=== PATIENT | male | born 1940 | race American Indian/Alaskan Native ===

== ENCOUNTER 2020-10-30 16:30 | Observation (INO) | payer MEDICARE, OTHER ==
--- NOTE | 2020-10-30 16:33 | Emergency Department Report ---
HPI - General Time Seen by Provider: 10/30/20 16:30 - HPI HPI: This is a 80-year-old -[place] male presents to the emergency department via EMS, after he was brought into the fire station by his son, with complaint of left-sided facial droop, drooling, and slurred speech. Apparently the patient's last known well time was about 2:15 PM. He has a history of a previous TIA, hypertension, insulin-dependent diabetes and is end-stage renal disease on hemodialysis. The patient is awake, alert, oriented and denies any headache, fever, vision change, numbness or weakness of the extremities. The patient had an Accu-Chek in route that was 120. He completed dialysis earlier today. Given the facial droop and slurred speech, which the family says is not his baseline, a code stroke has been initiated. ED Review of Systems ROS: Stated complaint: POSS STROKE Other details as noted in HPI Comment: All other systems reviewed and negative Constitutional: denies: chills, fever Eyes: denies: eye pain, vision change ENT: denies: ear pain, throat pain Respiratory: denies: cough, shortness of breath Cardiovascular: denies: chest pain, palpitations Gastrointestinal: denies: abdominal pain, vomiting Genitourinary: denies: dysuria, discharge Musculoskeletal: denies: back pain, arthralgia Skin: denies: rash, lesions Neurological: other (Left-sided facial droop, slurred speech). denies: headache Physical Exam - Physical Exam Physical Exam: GENERAL: The patient is well-developed well-nourished. HENT: Normocephalic. Atraumatic. Patient has moist mucous membranes. EYES: Extraocular motions are intact. Pupils equal reactive to light bilaterally. No nystagmus. No gaze preference. NECK: Supple. Trachea is midline. CHEST/LUNGS: Clear to auscultation. There is no respiratory distress noted. HEART/CARDIOVASCULAR: Regular. There is no tachycardia. There is no murmur. ABDOMEN: Abdomen is soft, nontender. Patient has normal bowel sounds. There is no abdominal distention. SKIN: Skin is warm and dry. NEURO: The patient is awake, alert, and oriented. The patient is cooperative. Mild dysarthria. There is a left-sided nasolabial fold paresis causing some drooling. Forehead sparing. No pronator drift. MUSCULOSKELETAL: There is no tenderness or deformity. There is no limitation range of motion. ED Medical Decision Making - Lab Data Result diagrams: 10/30/20 16:35 10/30/20 16:35 Lab Results 10/30/20 10/30/20 10/30/20 Range/Units 16:35 16:35 16:35 WBC 8.4 (4.5-11.0) K/mm3 RBC 4.30 (3.65-5.03) M/mm3 Hgb 13.2 (11.8-15.2) gm/dl Hct 40.7 (35.5-45.6) % MCV 95 H (84-94) fl MCH 31 (28-32) pg MCHC 32 (32-34) % RDW 14.6 (13.2-15.2) % Plt Count 206 (140-440) K/mm3 Lymph % (Auto) Care Aide [place] % (Auto) Care Aide Eos % (Auto) Care Aide Baso % (Auto) Care Aide Lymph # (Auto) Care Aide [place] # (Auto) Care Aide Eos # (Auto) Care Aide Baso # (Auto) Care Aide Seg Neutrophils % Care Aide Seg Neutrophils # Care Aide PT 12.9 (12.2-14.9) Sec. INR 0.92 (0.87-1.13) APTT 30.0 (24.2-36.6) Sec. Thrombin Time 17.7 (15.1-19.6) Sec. Sodium 132 L (137-145) mmol/L Potassium 3.7 (3.6-5.0) mmol/L Chloride 99.9 (98-107) mmol/L Carbon Dioxide 24 (22-30) mmol/L Anion Gap 12 mmol/L BUN 7 L (9-20) mg/dL Creatinine 5.2 H (0.8-1.3) mg/dL Estimated GFR 13 ml/min BUN/Creatinine Ratio 1 % Glucose 135 H (75-100) mg/dL Calcium 9.0 (8.4-10.2) mg/dL Total Bilirubin 0.30 (0.1-1.2) mg/dL AST 12 (5-40) units/L ALT 15 (7-56) units/L Alkaline Phosphatase 220 H (35-129) units/L Troponin T 0.046 H (0.00-0.029) ng/mL Total Protein 7.0 (6.3-8.2) g/dL Albumin 3.6 L (3.9-5) g/dL Albumin/Globulin Ratio 1.1 % Triglycerides 110 (2-149) mg/dL Cholesterol 110 (50-199) mg/dL LDL Cholesterol Direct 53 (50-130) mg/dL HDL Cholesterol 33 L (40-59) mg/dL Cholesterol/HDL Ratio 3.33 % TSH (0.270-4.200) mlU/mL Plasma/Serum Alcohol (0-0.07) % Blood Type Antibody Screen 10/30/20 10/30/20 10/30/20 Range/Units 16:35 16:35 16:40 WBC (4.5-11.0) K/mm3 RBC (3.65-5.03) M/mm3 Hgb (11.8-15.2) gm/dl Hct (35.5-45.6) % MCV (84-94) fl MCH (28-32) pg MCHC (32-34) % RDW (13.2-15.2) % Plt Count (140-440) K/mm3 Lymph % (Auto) [place] % (Auto) Eos % (Auto) Baso % (Auto) Lymph # (Auto) [place] # (Auto) Eos # (Auto) Baso # (Auto) Seg Neutrophils % Seg Neutrophils # PT (12.2-14.9) Sec. INR (0.87-1.13) APTT (24.2-36.6) Sec. Thrombin Time (15.1-19.6) Sec. Sodium (137-145) mmol/L Potassium (3.6-5.0) mmol/L Chloride (98-107) mmol/L Carbon Dioxide (22-30) mmol/L Anion Gap mmol/L BUN (9-20) mg/dL Creatinine (0.8-1.3) mg/dL Estimated GFR ml/min BUN/Creatinine Ratio % Glucose (75-100) mg/dL Calcium (8.4-10.2) mg/dL Total Bilirubin (0.1-1.2) mg/dL AST (5-40) units/L ALT (7-56) units/L Alkaline Phosphatase (35-129) units/L Troponin T (0.00-0.029) ng/mL Total Protein (6.3-8.2) g/dL Albumin (3.9-5) g/dL Albumin/Globulin Ratio % Triglycerides (2-149) mg/dL Cholesterol (50-199) mg/dL LDL Cholesterol Direct (50-130) mg/dL HDL Cholesterol (40-59) mg/dL Cholesterol/HDL Ratio % TSH 1.410 (0.270-4.200) mlU/mL Plasma/Serum Alcohol < 0.01 (0-0.07) % Blood Type B NEGATIVE Antibody Screen Negative - EKG Data -: EKG Interpreted by Fl EKG shows normal: sinus rhythm, axis, intervals (Prolonged ID interval), QRS complexes (Low voltage, Q waves to the septal leads), ST-T waves Rate: bradycardia (58 bpm) - EKG Data When compared to previous EKG there are: previous EKG unavailable Interpretation: other (Sinus bradycardia 58 bpm, normal axis, prolonged ID interval, low voltage QRS, Q waves to the septal leads. No ST elevation WI.) - Radiology Data Radiology results: report reviewed CT HEAD WITHOUT CONTRAST INDICATION / CLINICAL INFORMATION: Stroke symptoms. Facial droop and slurred speech. Hemodialysis patient. TECHNIQUE: All CT scans at this location are performed using CT dose reduction for ALARA by means of automated exposure control. COMPARISON: None available. FINDINGS: HEMORRHAGE: No evidence of intracranial hemorrhage or extra-axial fluid collection. EXTRA-AXIAL SPACES: Cortical sulci and sylvian fissures are enlarged reflecting a degree of parenchymal volume loss which is within normal limits for the patient's age of . Basilar cisterns have an unremarkable appearance. VENTRICULAR SYSTEM: The third and lateral ventricles are enlarged reflecting presence of age related parenchymal volume loss. In addition there is persistence of the cava septum pe llucidum and cavum vergae. CEREBRAL PARENCHYMA: Periventricular and deep white matter lucency is observed. This is probably secondary to microvascular ischemic change. There is no indication of recent infarction. Multiple, remote small deep infarctions are identified in a bilateral gangliocapsular distribution. MIDLINE SHIFT OR HERNIATION: There is no mass effect. CEREBELLUM / BRAINSTEM: There is evidence of several remote small deep pontine infarctions. Brainstem has an otherwise unremarkable appearance. No cerebellar abnormalities are identified. MIDLINE STRUCTURES:Pituitary gland has an unremarkable appearance. No abnormalities are seen in the pineal region. INTRACRANIAL VESSELS:Calcified atherosclerotic plaque is present along the course of the cavernous segments of both internal carotid arteries. Similar findings are seen at the distal vertebral arteries. ORBITS: Status post bilateral cataract surgery. No additional abnormality. SOFT TISSUES of HEAD: No significant abnormality. CA LVARIUM: Evaluation of bone windows reveals no abnormalities. PARANASAL SINUSES / MASTOID AIR CELLS: Paranasal sinuses are free from inflammatory mucosal disease. Mastoid air cells are normally pneumatized. ADDITIONAL FINDINGS: None. IMPRESSION: 1. Prominent parenchymal volume loss and microvascular ischemic change. 2. Multifocal remote small deep infarctions in a bilateral gangliocapsular distribution and within the tawnya. 3. No acute intracranial abnormalities are identified. - Medical Decision Making This patient was brought to the local fire station by his son after he appeared to show some left-sided facial droop, drooling, and some slurred speech. The patient did exhibit these symptoms upon arrival so a code stroke was initiated. CT scan of the head without contrast did not show any hemorrhage, large vessel occlusion, or any other acute process. The patient was seen by the telemedicine neurologist, Dr. Heck, who gave the patient an NIH stroke scale of 1 and felt that he did not require TPA as this may represent a TIA or be a nondisabling deficit. He also did not feel that it warranted CT angiography studies, but does recommend admission for MRI/MRA. Patient's labs were mostly unremarkable except for the renal insufficiency consistent with his end-stage renal disease, and a slightly elevated troponin that is most likely also secondary to his end- stage renal disease. The patient was given a full dose aspirin. He will be admitted to the hospital for further evaluation and treatment was accepted for admission by the hospitalist, Dr. Singer. Critical Care Time: No Critical care attestation.: If time is entered above; I have spent that time in minutes in the direct care of this critically ill patient, excluding procedure time. ED Disposition Clinical Impression: CVA (cerebral vascular accident), End stage renal disease, Elevated troponin Disposition: OP ADMIT IP TO THIS HOSP Is pt being admited?: Yes Condition: Serious Time of Disposition: 23:30
--- NOTE | 2020-10-30 16:47 | Consultation ---
History of Present Illness - Reason for Consult Consult date: 10/30/20 - History of Present Illness [facility] Consult Note # Demographics Consult Type: Acute Stroke Level 1 (0-4.5 hrs) Patient Location: Emergency Room First Name: Luis Miguel Last Name: Danielle Date of : 1940 Age: 80 Gender: Male Time of Initial Page ( Time): 10/30/2020, 16:35 Time of Return Call ( Time): 10/30/2020, 16:38 # HPI History: 80yo man who presents with onset of slurred speech and drooling starting at 1400 or 1415. He presented to the critical access hospital at around 1600. There is no focal weakness or numbness. # Scores Time of exam and NIHSS ( Time): 10/30/2020, 16:40 Level of Consciousness 1a: [0] = Alert; keenly responsive LOC Questions 1b: [0] = Answers both questions correctly LOC Commands 1c: [0] = Performs both tasks correctly Best Gaze 2: [0] = Normal Visual 3: [0] = No visual loss Facial Palsy 4: [0] = Normal symmetrical movements Motor Arm Left 5a: [0] = No drift Motor Arm Right 5b: [0] = No drift Motor Leg Left 6a: [0] = No drift Motor Leg Right 6b: [0] = No drift Limb Ataxia 7: [0] = Absent Sensory 8: [0] = Normal Best Language 9: [0] = No aphasia Dysarthria 10: [1] = [id number] dysarthria Extinction and Inattention 11: [0] = No abnormality NIHSS Total: 1 # PMH-FH-SH Past Medical History: TIA # Data Head CT: no bleed # Assessment Impression: Transient Ischemic Attack # Plan Thrombolytic/Intervention: NOT IV Thrombolysis or IA Intervention candidate Thrombolytic Exclusion (< 3 hour window): non-disabling deficit Intraarterial Exclusion: non-disabling Target Blood Pressure: SBP < 220 Labs: ESR lipid panel Imaging: (urgency: routine): MR Angiogram Neck with contrast MRI Brain without contrast Diagnostic Test: echo without bubble study Therapy/Evaluation: NPO until swallow evaluation PT/OT evaluation speech/swallow consultation Medication: aspirin 81 mg daily DVT Prophylaxis: SCD chemical DVT prophylaxis Other: permissive hypertension telemetry monitoring I have discussed my recommendations with the referring provider Disposition: admit Medications and Allergies Allergies Allergy/AdvReac Type Severity Reaction Status Date / Time No Known Allergies Allergy Unverified 08/24/15 12:11
--- NOTE | 2020-10-30 16:55 | Cat Scan Report ---
CT HEAD WITHOUT CONTRAST INDICATION / CLINICAL INFORMATION: Stroke symptoms. Facial droop and slurred speech. Hemodialysis patient. TECHNIQUE: All CT scans at this location are performed using CT dose reduction for ALARA by means of automated e xposure control. COMPARISON: None available. FINDINGS: HEMORRHAGE: No evidence of intracranial hemorrhage or extra-axial fluid collection. EXTRA-AXIAL SPACES: Cortical sulci and sylvian fissures are enlarged reflecting a degree of parenchym al volume loss which is within normal limits for the patient's age of . Basilar cisterns have an unre markable appearance. VENTRICULAR SYSTEM: The third and lateral ventricles are enlarged reflecting presence of age related parenchymal volume loss. In addition there is persistence of the cava septum pellucidum and cavum zainab gae. CEREBRAL PARENCHYMA: Periventricular and deep white matter lucency is observed. This is probably seco ndary to microvascular ischemic change. There is no indication of recent infarction. Multiple, remote small deep infarctions are identified in a bilateral gangliocapsular distribution. MIDLINE SHIFT OR HERNIATION: There is no mass effect. CEREBELLUM / BRAINSTEM: There is evidence of several remote small deep pontine infarctions. Brainstem has an otherwise unremarkable appearance. No cerebellar abnormalities are identified. MIDLINE STRUCTURES:Pituitary gland has an unremarkable appearance. No abnormalities are seen in the p ineal region. INTRACRANIAL VESSELS:Calcified atherosclerotic plaque is present along the course of the cavernous se gments of both internal carotid arteries. Similar findings are seen at the distal vertebral arteries. ORBITS: Status post bilateral cataract surgery. No additional abnormality. SOFT TISSUES of HEAD: No significant abnormality. CALVARIUM: Evaluation of bone windows reveals no abnormalities. PARANASAL SINUSES / MASTOID AIR CELLS: Paranasal sinuses are free from inflammatory mucosal disease. Mastoid air cells are normally pneumatized. ADDITIONAL FINDINGS: None. IMPRESSION: 1. Prominent parenchymal volume loss and microvascular ischemic change. 2. Multifocal remote small deep infarctions in a bilateral gangliocapsular distribution and within th e tawnya. 3. No acute intracranial abnormalities are identified. Signer Name: Dylan Williamson MD Signed: 10/30/2020 4:50 PM Workstation Name: [id number]
[2020-10-30 17:00] LABS: INR 0.92 (0.87-1.13); Thrombin Time 17.7 Sec. (15.1-19.6)
[2020-10-30 17:01] LABS: Hematocrit 40.7 % (35.5-45.6); Hemoglobin 13.2 gm/dl (11.8-15.2); Mean Corpuscular HGB Conc 32 % (32-34); Mean Corpuscular Volume 95 fl (84-94); Platelet Count 206 K/mm3 (140-440); Red Cell Distribution Width 14.6 % (13.2-15.2)
[2020-10-30 17:08] LABS: Albumin 3.6 g/dL (3.9-5)
[2020-10-30] MEDS ORDERED: ASPIRIN 81 MG TAB CHEW PO ONE (17:14)
--- NOTE | 2020-10-30 17:23 | History and Physical Report ---
History of Present Illness Chief complaint: He cannot talk right History of present illness: 80 YO Male with Obesity Hypoventilation Syndrome, CVA, ESRD on HD(M,W,F), Vascular Dementia, Cerebral Atherosclerosis presents to ED for evaluation. Patient has diminished cognition as well as dysarthria and is unable to provide detailed history at the time my evaluation. Patient history taken from EMS staff, ED staff, as well as the patient's daughter was made available by telephone for interview. As per son the patient was in his usual state of health and was found to have left-sided facial droop, drooling, slurred speech, and confusion. EMS was notified and upon arrival the patient was found to have a neurologic deficit. A code stroke was called and the patient was transported to [facility] for further care and evaluation of the aforementioned symptoms. The patient was seen and evaluated in the emergency department. All lab and imaging studies reviewed. Patient was found to have symptoms consistent with CVA. Teleneurology was consulted. The patient was placed in observation status and initiated on CVA protocol. No reports of fever, chills, chest pain, palpitation, productive cough, skin rash, recent ill contacts, or known exposure to COVID-19. No prior admission for review. No medication listed at time of admission for reconciliation. Advanced care planning conducted in ED." Past History Past Medical History: ESRD Past Surgical History: No surgical history, Other (Dialysis access) Medications and Allergies Allergies Allergy/AdvReac Type Severity Reaction Status Date / Time No Known Allergies Allergy Unverified 08/24/15 12:11 Review of Systems ROS unobtainable: due to mental status Exam - Constitutional Vitals: Temp Pulse Resp BP Pulse Ox 98.1 F 61 12 100/40 100 10/30/20 17:00 10/30/20 17:00 10/30/20 17:00 10/30/20 17:00 10/30/20 17:00 General appearance: Present: mild distress, obese - EENT Eyes: Present: PERRL ENT: hearing decreased - Neck Neck: Present: supple, normal ROM - Respiratory Respiratory effort: normal Respiratory: bilateral: CTA - Cardiovascular Heart Sounds: Present: S1 & S2. Absent: rub, click - Extremities Extremities: pulses symmetrical, No edema Peripheral Pulses: within normal limits - Abdominal General gastrointestinal: Present: soft, non-tender, non-distended, normal bowel sounds Male genitourinary: Present: normal - Integumentary Integumentary: Present: clear, dry - Musculoskeletal Musculoskeletal: generalized weakness - Psychiatric Psychiatric: no appropriate mood/affect, no intact judgment & insight, no memory intact - Neurologic Neurologic: no CNII-XII intact, focal deficits, moves all extremities, no gait normal HEART Score - HEART Score Troponin: Troponin T 0.046 ng/mL (0.00-0.029) H 10/30/20 16:35 Results - Labs CBC & Chem 7: 10/30/20 16:35 10/30/20 16:35 Labs: Abnormal lab results 10/30/20 10/30/20 Range/Units 16:35 16:35 MCV 95 H (84-94) fl Sodium 132 L (137-145) mmol/L BUN 7 L (9-20) mg/dL Creatinine 5.2 H (0.8-1.3) mg/dL Glucose 135 H (75-100) mg/dL Alkaline Phosphatase 220 H (35-129) units/L Troponin T 0.046 H (0.00-0.029) ng/mL Albumin 3.6 L (3.9-5) g/dL Assessment and Plan - Patient Problems (1) CVA (cerebral vascular accident) Current Visit: Yes Status: Acute Plan to address problem: CVA protocol: CT head, seizure precautions, aspiration precautions, antiplatelet therapy, lipid panel, carotid Doppler, echocardiogram, physical therapy consulted, Occupational Therapy consulted, speech therapy consulted, telemetry neurology consulted. (2) Obesity hypoventilation syndrome Current Visit: Yes Status: Acute Plan to address problem: Balanced diet, increase physical activity discharge, outpatient pulmonary follow-up for sleep study (3) End stage renal disease Current Visit: Yes Status: Acute Plan to address problem: Dialysis as per renal team, nephrology team consulted in ED. (4) Vascular dementia Current Visit: Yes Status: Acute Plan to address problem: Verbal prompting, verbal redirection, benzodiazepine therapy as clinically indicated (5) Cerebral atherosclerosis Current Visit: Yes Status: Acute Plan to address problem: Verbal prompting, verbal redirection, risk factor reduction, antiplatelet therapy. (6) DVT prophylaxis Current Visit: Yes Status: Acute Plan to address problem: SCD to bilateral lower extremities while in bed, (7) Advance care planning Current Visit: Yes Status: Acute Plan to address problem: Disease education conducted, care plan discussed, prognosis discussed, diagnoses discussed, patient family knowledges understanding agree with care plan, +30 minutes. Patient is full code.
[2020-10-30] MEDS ORDERED: METOCLOPRAMIDE 10 MG TAB PO PRN (17:24)
[2020-10-30] MEDS ORDERED: HYDROmorphone 1 MG/1 ML INJ IV PRN (17:24)
[2020-10-30] MEDS ORDERED: PROMETHAZINE 25 MG RECT SUPP PR PRN (17:24)
[2020-10-30] MEDS ORDERED: oxyCODONE /ACETAMINOPHEN 5-325MG TAB PO PRN (17:24)
[2020-10-30] MEDS ORDERED: ACETAMINOPHEN 325 MG TAB PO PRN (17:24)
[2020-10-30] MEDS ORDERED: MAGNESIUM HYDROXIDE (MOM) ORAL LIQD UDC PO PRN (17:24)
[2020-10-30] MEDS ORDERED: ONDANSETRON 4 MG/2 ML INJ IV PRN (17:24)
[2020-10-30 17:44] LABS: Chol/HDL Ratio 3.33 %
[2020-10-31] MEDS ORDERED: ASPIRIN 325 MG TAB PO SCH (10:00)
[2020-10-31] MEDS ORDERED: CLOPIDOGREL 75 MG TAB PO SCH (10:00)
--- NOTE | 2020-10-31 10:11 | Electrocardiograph Report ---
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
--- NOTE | 2020-10-31 10:15 | Vascular Lab Report ---
DUPLEX DOPPLER ULTRASOUND CAROTID, BILATERAL INDICATION / CLINICAL INFORMATION: stroke. COMPARISON: None available. FINDINGS: RIGHT CAROTID: - PLAQUE ESTIMATE (%): < 50% - CCA velocity: 80.1 cm/sec. - ICA peak systolic velocity: 82.4 cm/sec. - ICA/CCA PSV Ratio: 1.0 Right Vertebral Artery: Antegrade flow. LEFT CAROTID: Focal greater than 50% plaque noted at the proximal ICA. - PLAQUE ESTIMATE (%): > 50% - CCA velocity: 93.2 cm/sec. - ICA peak systolic velocity: 130.6 cm/sec. - ICA/CCA PSV Ratio: 1.4 Left Vertebral Artery: Antegrade flow. IMPRESSION: 1. Right Internal Carotid Artery: Less than 50% diameter stenosis. 2. Left Internal Carotid Artery: 50-69% diameter stenosis at the proximal ICA. Velocity criteria are extrapolated from diameter data as defined by the Society of Radiologists in Ul trasound Consensus Conference, Radiology 2003; 229;340-346. NO STENOSIS (NORMAL) - Plaque = none; ICA PSV < 125 cm/sec; ICA/CCA PSV Ratio < 2.0 <50% STENOSIS - Plaque < 50%; ICA PSV < 125 cm/sec; ICA/CCA PSV Ratio < 2.0 50-69% STENOSIS - Plaque > 50%; ICA PSV = 125-230 cm/sec; ICA/CCA PSV Ratio = 2.0-4.0 >70% BUT <100% STENOSIS - Plaque > 50%; ICA PSV > 230 cm/sec; ICA/CCA PSV Ratio > 4.0 NEAR OCCLUSION - Plaque = visible lumen; ICA PSV = high/low/none; ICA/CCA PSV Ratio = variable TOTAL OCCLUSION - Plaque = no lumen; ICA PSV = none; ICA/CCA PSV Ratio = N/A Signer Name: Asif Dominique MD Signed: 10/31/2020 10:10 AM Workstation Name: [email or web address] [id number]
--- NOTE | 2020-10-31 14:32 | Consultation ---
History of Present Illness - Reason for Consult Consult date: 10/31/20 end stage renal disease - History of Present Illness This is a 80 year-old man with ESRD who presents for neurological deficit Patient usually dialyzes MWF at [facility]. Last HD 10/30. Denies any recent issues with HD, including dizziness, lightheadedness, cramping, chest pain on HD. Was noted by son to be altered after HD yesterday. In discussion with Dr. Woodall, patient has been more fatigued, losing weight, ill appearing at HD unit more recently with need for GI evaluation Currently, patient denies any issues including dyspnea, edema, access issues, nausea, vomiting, headaches. Past History Past Medical History: ESRD Past Surgical History: No surgical history, Other (Dialysis access) Medications and Allergies Allergies Allergy/AdvReac Type Severity Reaction Status Date / Time No Known Allergies Allergy Unverified 08/24/15 12:11 Active Meds: Active Medications Acetaminophen (Acetaminophen 325 Mg Tab) 650 mg PO Q4H PRN PRN Reason: Pain, Mild (1-3) Aspirin (Aspirin 325 Mg Tab) 325 mg PO QDAY [facility] Last Admin: 10/31/20 13:00 Dose: 325 mg Documented by: Atorvastatin Calcium (Atorvastatin 40 Mg Tab) 40 mg PO QHS [facility] Last Admin: 10/30/20 21:37 Dose: 40 mg Documented by: Bisacodyl (Bisacodyl 10 Mg Rect Supp) 10 mg AL QDAY PRN PRN Reason: Constipation Clopidogrel Bisulfate (Clopidogrel 75 Mg Tab) 75 mg PO QDAY [facility] Last Admin: 10/31/20 13:00 Dose: 75 mg Documented by: Hydromorphone HCl (Hydromorphone 1 Mg/1 Ml Inj) 0.5 mg IV Q12H PRN PRN Reason: Pain , Severe (7-10) Magnesium Hydroxide (Magnesium Hydroxide (Mom) Oral Liqd Udc) 30 ml PO Q4H PRN PRN Reason: Constipation Metoclopramide HCl (Metoclopramide 10 Mg Tab) 10 mg PO Q6H PRN PRN Reason: Nausea And Vomiting Ondansetron HCl (Ondansetron 4 Mg/2 Ml Inj) 4 mg IV Q8H PRN PRN Reason: Nausea And Vomiting Oxycodone/Acetaminophen (Oxycodone /Acetaminophen 5-325mg Tab) 1 tab PO Q12H PRN PRN Reason: Pain, Moderate (4-6) Promethazine HCl (Promethazine 25 Mg Rect Supp) 25 mg AL Q6H PRN PRN Reason: Nausea And Vomiting Sodium Chloride (Sodium Chloride 0.9% 10 Ml Flush Syringe) 10 ml IV PRN PRN PRN Reason: LINE FLUSH Review of Systems All systems: negative (as per HPI) Exam - Vital Signs Vital signs: Vital Signs Pulse Resp Pulse Ox 64 13 100 10/30/20 16:59 10/30/20 16:59 10/30/20 16:59 - Physical Exam Narrative exam: Constitutional: no acute distress, frail appearing Head: NC/AT Neck: supple Lungs: clear to auscultation CV: RRR, no M/R/G Abdomen: soft, non-tender, bowel sounds present Back: nontender Extremities: no edema, pulses WNL Skin: intact Neuro: no focal deficits, alert and oriented x4 Results - Lab Results 10/30/20 16:35 10/30/20 16:35 Most recent lab results Calcium 9.0 mg/dL (8.4-10.2) 10/30/20 16:35 Assessment and Plan This is a 80 year old man who presents with neurological deficit # ESRD: no indication for HD today, HD tomorrow for toxin clearance - daily labs - renally dose meds - avoid nephrotoxins - renal diet - verbal consent obtained for HD # Anemia: last hemoglobin 13, no indication for ESAs acutely # HTN: UF minimally given soft BP, frailty and appears hypovolemic # Secondary Hyperparathyroidism: continue home binders as needed # General Weakness: has been losing weight on outpatient basis, was to have endoscopy. Recommend GI consult while inpatient for potential endoscopy in evaluation for failure to thrive given outpatient concerns
[2020-10-31] MEDS ORDERED: SODIUM CHLORIDE 0.9% 100 ML IV PRN (15:06)
[2020-10-31 15:10] LABS: Calcium 9.2 mg/dL (8.4-10.2)
--- NOTE | 2020-10-31 16:43 | Discharge Summary ---
Providers - Providers Date of Admission: 10/30/20 17:26 Attending physician: JERRY WALTON 10/30/20 17:26 Occupational Therapy Evaluate and Treat [CONS] Routine Comment: Reason For Exam: Neuro deficits Physical Therapy Evaluation and Treat [CONS] Routine Comment: Reason For Exam: Neuro deficits 10/30/20 17:28 Speech Therapy Evaluation and Treat [CONS] Routine Reason For Exam: swallow eval 10/31/20 11:58 Consult to Physician [CONS] Routine Comment: Consulting Provider: RUTHANN GARCIA Physician Instructions: Reason For Exam: esrd 10/31/20 15:07 Consult to Physician [CONS] Routine Comment: Consulting Provider: DAJUAN COLLINS Physician Instructions: Reason For Exam: weight loss, concern for failure to thrive Primary care physician: ENGINE ASSEMBLY SUPERVISOR Hospitalization Condition: Serious - Discharge Diagnoses (1) CVA (cerebral vascular accident) Status: Acute (2) Obesity hypoventilation syndrome Status: Acute (3) End stage renal disease Status: Acute (4) Vascular dementia Status: Acute (5) Cerebral atherosclerosis Status: Acute (6) DVT prophylaxis Status: Acute (7) Advance care planning Status: Acute Exam - Constitutional Vitals: Temp Pulse Resp BP Pulse Ox 98.3 F 69 18 106/53 97 10/31/20 08:26 10/31/20 08:26 10/31/20 08:26 10/31/20 08:26 10/31/20 08:26 Plan Follow up with: PRIMARY MD JOLANTA [Primary Care Provider] - 7 Days
[2020-10-31 17:51] VITALS: BP 116/50
== END 2020-10-31 19:20 | disposition home or self-care (01) ==
LOC: ED 16:30 → 4A 17:26
PROVIDERS: ADMIT Internal Medicine; ATTEND Internal Medicine
DX: I63.9 Cerebral infarction, unspecified (principal); I12.0 Hypertensive chronic kidney disease with stage 5 chronic kidney disease or end stage renal disease; N18.6 End stage renal disease; D63.1 Anemia in chronic kidney disease; F01.50 Vascular dementia, unspecified severity, without behavioral disturbance, psychotic disturbance, mood disturbance, and anxiety; I67.2 Cerebral atherosclerosis; E66.2 Morbid (severe) obesity with alveolar hypoventilation; N25.81 Secondary hyperparathyroidism of renal origin; R53.1 Weakness; R77.8 Other specified abnormalities of plasma proteins; R29.701 NIHSS score 1; Z68.20 Body mass index [BMI] 20.0-20.9, adult; Z86.73 Personal history of transient ischemic attack (TIA), and cerebral infarction without residual deficits; Z99.2 Dependence on renal dialysis; Z79.82 Long term (current) use of aspirin
CPT/HCPCS: 36415; 70450; 80048; 80053; 80061; 82962; 84443; 84484; 85025; 85610; 85670; 85730; 86850; 86900; 86901; 92610; 93005; 93306; 93880; 97161; 97165; 97535; 99285; A9270; G0378; 80320; G0480

== ENCOUNTER 2020-11-06 15:18 | Observation (INO) | payer MEDICARE ==
--- NOTE | 2020-11-06 15:22 | Emergency Department Report ---
Blank Doc - Documentation Documentation: 80-year-old male that was brought by daughter for left facial drooping and wea kness that occurred less than an hour ago. History of stroke. Physical exam: Right lower extremity weakness with left-sided facial drooping 1- This is a initial triage assessment/medical screening only. Full assessment and work-up will be completed once the patient is in proper hospital gown, ED bed and in a private room setting. This initial assessment/diagnostic orders/clinical plan/ treatment(s) is/are subject to change based on pt's health status, clinical progression and re-assessment by fellow clinical providers in the ED. Further treatment and workup at subsequent clinical providers discretion. Patient/guardians urged not to elope from ED as their condition may be serious if not clinically assessed and managed. 2-stroke protocol initiated
--- NOTE | 2020-11-06 15:35 | Emergency Department Report ---
ED Neuro Deficit HPI - General Chief Complaint: Neuro Symptoms/Deficit Stated Complaint: POSS CVA Time Seen by Provider: 11/06/20 15:19 Source: patient Mode of arrival: Wheelchair Limitations: No Limitations - History of Present Illness Initial Comments: Chief complaint: Facial droop HPI: This is a 80-year-old male with history of CVA, end-stage renal disease on hemodialysis, vascular dementia, obesity hypoventilation syndrome who presents with left-sided facial droop 1 hour prior to arrival. Patient was admitted 7 days ago at this facility for similar symptoms of facial droop slurred speech confusion. He was admitted with a diagnosis of CVA and appropriate work-up which included echocardiogram and carotid Doppler ultrasound. -: Sudden, hour(s) (1 hour prior to arrival) Location: left face Presenting Symptoms: Present: Weak/Paralyzed One Side History of same: Yes Place: other (Daughter noticed while patient was riding in car) Severity: mild Quality: weak Improves With: none Worsens With: none Context: sudden onset Associated Symptoms: denies other symptoms Treatments Prior to Arrival: other (Daughter transported patient to facility) - Related Data Home Medications: Home Medications Medication Instructions Recorded Confirmed Last Taken [facility] Vitamin A and D Ointment 800 mg PO DAILY 10/31/20 10/31/20 Unknown Mecobalamin [B12 Active] 1,000 mcg PO QDAY 10/31/20 10/31/20 Unknown Metoprolol [Lopressor TAB] 25 mg PO DAILY 10/31/20 10/31/20 Unknown Previous Rx's Medication Instructions Recorded Last Taken Type Aspirin 325 mg PO QDAY #30 tablet 10/31/20 Unknown Rx Clopidogrel [Plavix] 75 mg PO QDAY #30 tablet 10/31/20 Unknown Rx Simvastatin 40 mg PO QHS #30 tablet 10/31/20 Unknown Rx Allergies/Adverse Reactions: Allergies Allergy/AdvReac Type Severity Reaction Status Date / Time No Known Allergies Allergy Unverified 08/24/15 12:11 ED Review of Systems ROS: Stated complaint: POSS CVA Other details as noted in HPI Comment: Unobtainable due to pts medical conditions (Dementia) ED Past Medical Hx - Past Medical History Previous Medical History?: Yes Hx CVA: Yes (1 week ago??) Hx Diabetes: Yes (IDDM) Hx Renal Disease: Yes (HD M, W, F) Additional medical history: TIA, - Surgical History Past Surgical History?: Yes - Social History Smoking Status: Never Smoker - Medications Home Medications: Home Medications Medication Instructions Recorded Confirmed Last Taken Type Aspirin 325 mg PO QDAY #30 tablet 10/31/20 Unknown Rx Clopidogrel [Plavix] 75 mg PO QDAY #30 tablet 10/31/20 Unknown Rx [facility] Vitamin A and D Ointment 800 mg PO DAILY 10/31/20 10/31/20 Unknown History Mecobalamin [B12 Active] 1,000 mcg PO QDAY 10/31/20 10/31/20 Unknown History Metoprolol [Lopressor TAB] 25 mg PO DAILY 10/31/20 10/31/20 Unknown History Simvastatin 40 mg PO QHS #30 tablet 10/31/20 Unknown Rx ED Neuro Physical Exam - General Limitations: No Limitations General appearance: alert, in no apparent distress, other (Sitting upright in stretcher with legs crossed at the ankle, nontoxic-appearing, appears comfortable, alert will answer questions) Suspected Stroke: Yes - Head Head exam: Present: atraumatic, normocephalic - Eye Eye exam: Present: normal appearance - ENT ENT exam: Present: mucous membranes moist - Neck Neck exam: Present: normal inspection - Respiratory Respiratory exam: Present: normal lung sounds bilaterally. Absent: respiratory distress, wheezes, rales, rhonchi - Cardiovascular Cardiovascular Exam: Present: regular rate, normal rhythm, normal heart sounds. Absent: systolic murmur, diastolic murmur, rubs, gallop - GI/Abdominal GI/Abdominal exam: Present: soft, normal bowel sounds - Rectal Rectal exam: Present: deferred - Extremities Exam Extremities exam: Present: normal inspection - Neurological Exam Neurological exam: Present: alert - NIHSS Assessment Interval: Baseline 1a. Level of Consciousness: alert/keenly responsive 1b. LOC Questions: answers 1 question correctly 1c. LOC Commands: performs tasks correctly 2. Best Gaze: normal 3. Visual: no visual loss 4. Facial Palsy: partial paralysis 5b. Motor Arm Right: no drift 5a. Motor Arm Left: no drift 6a. Motor Leg Left: no drift 6b. Motor Leg Right: no drift 7. Limb Ataxia: absent 8. Sensory: normal 9. Best Language: no aphasia 10. Dysarthria: normal 11. Extinction/Inattention: no abnormality Total Score: 3 Stroke Severity: Minor Stroke - Psychiatric Psychiatric exam: Present: normal affect, normal mood - Skin Skin exam: Present: warm, dry, intact, normal color. Absent: rash ED Course Vital Signs 11/06/20 11/06/20 15:28 16:44 Temperature 98.0 F Pulse Rate 69 Respiratory 18 Rate Blood Pressure 91/39 [Right] O2 Sat by Pulse 99 98 Oximetry - Reevaluation(s) Reevaluation #1: 11/06/20 15:41 I consulted with teleneurologist Reevaluation #2: 11/06/20 16:38 I discussed case with teleneurologist who did not recommend TPA considering patient's mild symptoms in previous recent CVA. Reevaluation #3: 11/06/20 16:38 Charge nurse took report from radiologist: CT head without acute findings patient does have chronic white matter changes. Reevaluation #4: 11/06/20 16:[address] the [address] angiogram of the head and neck not required at this time. He recommended inpatient MRI MRA head and neck - Lab Data Result diagrams: 11/06/20 15:48 11/06/20 15:48 Lab Results 11/06/20 11/06/20 11/06/20 Range/Units 15:24 15:48 15:48 WBC 8.9 (4.5-11.0) K/mm3 RBC 4.13 (3.65-5.03) M/mm3 Hgb 12.4 (11.8-15.2) gm/dl Hct 38.6 (35.5-45.6) % MCV 94 (84-94) fl MCH 30 (28-32) pg MCHC 32 (32-34) % RDW 14.7 (13.2-15.2) % Plt Count 231 (140-440) K/mm3 Lymph % (Auto) 20.7 (13.4-35.0) % Griggs % (Auto) 6.0 (0.0-7.3) % Eos % (Auto) 3.2 (0.0-4.3) % Baso % (Auto) Preforming Machine Operator Lymph # (Auto) 1.8 (1.2-5.4) K/mm3 Griggs # (Auto) 0.5 (0.0-0.8) K/mm3 Eos # (Auto) 0.3 (0.0-0.4) K/mm3 Baso # (Auto) 0.1 (0.0-0.1) K/mm3 Seg Neutrophils % 69.4 (40.0-70.0) % Seg Neutrophils # 6.2 (1.8-7.7) K/mm3 PT 12.6 (12.2-14.9) Sec. INR 0.89 (0.87-1.13) APTT 31.6 (24.2-36.6) Sec. Thrombin Time 17.6 (15.1-19.6) Sec. Sodium (137-145) mmol/L Potassium (3.6-5.0) mmol/L Chloride (98-107) mmol/L Carbon Dioxide (22-30) mmol/L Anion Gap mmol/L BUN (9-20) mg/dL Creatinine (0.8-1.3) mg/dL Estimated GFR ml/min BUN/Creatinine Ratio % Glucose (75-100) mg/dL POC Glucose 188 H (70-105) mg/dL Calcium (8.4-10.2) mg/dL Total Bilirubin (0.1-1.2) mg/dL AST (5-40) units/L ALT (7-56) units/L Alkaline Phosphatase (35-129) units/L Total Creatine Kinase (55-170) units/L CK-MB (CK-2) (0.0-4.0) ng/mL CK-MB (CK-2) Rel Index (0-4) Troponin T (0.00-0.029) ng/mL Total Protein (6.3-8.2) g/dL Albumin (3.9-5) g/dL Albumin/Globulin Ratio % /16/ Range/Units 15:48 WBC (4.5-11.0) K/mm3 RBC (3.65-5.03) M/mm3 Hgb (11.8-15.2) gm/dl Hct (35.5-45.6) % MCV (84-94) fl MCH (28-32) pg MCHC (32-34) % RDW (13.2-15.2) % Plt Count (140-440) K/mm3 Lymph % (Auto) (13.4-35.0) % Griggs % (Auto) (0.0-7.3) % Eos % (Auto) (0.0-4.3) % Baso % (Auto) Lymph # (Auto) (1.2-5.4) K/mm3 Griggs # (Auto) (0.0-0.8) K/mm3 Eos # (Auto) (0.0-0.4) K/mm3 Baso # (Auto) (0.0-0.1) K/mm3 Seg Neutrophils % (40.0-70.0) % Seg Neutrophils # (1.8-7.7) K/mm3 PT (12.2-14.9) Sec. INR (0.87-1.13) APTT (24.2-36.6) Sec. Thrombin Time (15.1-19.6) Sec. Sodium 139 (137-145) mmol/L Potassium 4.4 (3.6-5.0) mmol/L Chloride 100.9 (98-107) mmol/L Carbon Dioxide 25 (22-30) mmol/L Anion Gap 18 mmol/L BUN 27 H (9-20) mg/dL Creatinine 11.0 H (0.8-1.3) mg/dL Estimated GFR 5 ml/min BUN/Creatinine Ratio 2 % Glucose 115 H (75-100) mg/dL POC Glucose (70-105) mg/dL Calcium 9.8 (8.4-10.2) mg/dL Total Bilirubin 0.30 (0.1-1.2) mg/dL AST 13 (5-40) units/L ALT 11 (7-56) units/L Alkaline Phosphatase 208 H (35-129) units/L Total Creatine Kinase 46 L (55-170) units/L CK-MB (CK-2) 1.0 (0.0-4.0) ng/mL CK-MB (CK-2) Rel Index 2.1 (0-4) Troponin T 0.062 H (0.00-0.029) ng/mL Total Protein 6.5 (6.3-8.2) g/dL Albumin 3.3 L (3.9-5) g/dL Albumin/Globulin Ratio 1.0 % - EKG Data -: EKG Interpreted by Tn EKG shows normal: sinus rhythm, axis, QRS complexes, ST-T waves Rate: normal 11/06/20 16:58 EKG obtained 1651 EKG interpreted by me Rate 60 bpm normal axis normal QTC prolonged NV no ST elevation nonischemic T wave pattern - Radiology Data Radiology results: report reviewed [facility] [address] [place] [address] Cat Scan Report Signed Patient: DOMINIK DUONG MR#: [id number] 5 : 1940 Acct:[id number] Age/Sex: 80 / M ADM Date: 11/06/20 Loc: ED Attending Dr: Ordering Physician: KANE HENRY NP Date of Service: 11/06/20 Procedure(s): CT head/brain wo con Accession Number(s): [id number] cc: KANE HENRY NP CT head/brain wo con INDICATION / CLINICAL INFORMATION: 80 years Male; CODE STROKE CALL ER MAIN AT 8199 Stroke symptoms. TECHNIQUE: Routine CT head without contrast. All CT scans at this location are performed using CT dose reduction for ALARA by means of automated exposure control. COMPARISON: CT-10/30/2020 FINDINGS: BRAIN / INTRACRANIAL CONTENTS: Small lacunar infarcts seen in the gangliocapsular regions, including both thalami. Similar type findings seen on prior. Focus of decreased attenuation is seen in the tawnya, which was seen on prior exam. It would be difficult to evaluate for small areas of ischemia in these regions without diffusion imaging by MRI. Otherwise, no acute hemorrhage, mass effect, midline shift, hydrocephalus, or acute, large territorial infarct. Mild to moderate cerebral and mild cerebellar atrophy. Moderate degree of hippocampal atrophy suggested bilaterally. There are moderate, confluent areas of decreased attenuation in the white matter of the cerebral hemispheres. These are nonspecific findings and may be related to microangiopathy (hypertension, diabetes, atherosclerosis), given the patient's age. It might be difficult to evaluate for small areas of ischemia without diffusion imaging by MRI. CRANIOCERVICAL JUNCTION: No significant abnormality. ORBITS: No significant abnormality of visualized orbits. SINUSES / MASTOIDS: Visualized paranasal sinuses and mastoid air cells are essentially clear. ADDITIONAL FINDINGS: Atherosclerotic disease is seen in the anterior and posterior circulation. IMPRESSION: 1. No focal mass, hemorrhage, hydrocephalus, or acute, large territorial infarct. Follow-up with diffusion imaging by MRI, as clinically warranted. CODE STROKE: Exam Completed (SPECIAL OFFICER AUTOMAT/CDT): 11/06/2020 2:49 PM Exam Reviewed (SPECIAL OFFICER AUTOMAT/CDT): 2:55 PM Time of Communication (SPECIAL OFFICER AUTOMAT/CDT): 3:00 PM Licensed Practitioner Receiving Report: A nurse in the emergency room-Nancy Signer Name: Charles Farley MD, III Signed: 11/06/2020 4:04 PM Workstation Name: [id number] Transcribed By: HR Dictated By: Charles Farley MD Electronically Authenticated By: Charles Farley MD Signed Date/Time: 11/06/20 1604 DD/ 1555 TD/TT: - Medical Decision Making Acute CVA: Patient given aspirin emergency department. Patient does not meet criteria for TPA. Patient admitted to the hospital service in stable condition. Work-up notable for acute on chronic kidney injury suspect ATN GFR decreased from 95. E0.062 reflective of chronic kidney disease blood alcohol level negative PT PTT within normal limits CBC within normal limits Critical Care Time: Yes Critical care time in (mins) excluding proc time.: 40 Critical care attestation.: If time is entered above; I have spent that time in minutes in the direct care of this critically ill patient, excluding procedure time. 40 minutes of critical care time excluding procedures were used in the care of the patient. I came immediately to the bedside upon patient's arrival. I discussed treatment plan with the nursing team members. I reviewed electronic record. Patient required multiple interventions and reassessments. I spoke with several consultants regarding patient's care including hospitalist, radiologist, neurologist. ED Disposition Clinical Impression: Acute CVA (cerebrovascular accident), Acute on chronic kidney failure Disposition: ADMITTED INPATIENT Is pt being admited?: Yes Does the pt Need Aspirin: No Condition: Stable
--- NOTE | 2020-11-06 15:51 | Consultation ---
History of Present Illness History of present illness: [facility] Consult Note # Demographics Consult Type: Acute Stroke Level 2 (4.5-24 hrs) Patient Location: Emergency Room First Name: Luis Miguel Last Name: Danielle Date of : 1940 Age: 80 Gender: Male Time of Initial Page (): 11/06/2020, 15:29 Time of Return Call ( Time): 11/06/2020, 15:37 # HPI Chief Complaint: facial droop History: 80M with recent stroke, DM presents with left facial droop with onset 1 hour prior. LKWT ~1430. Has had slurred speech x1 week, was in hospital for stroke at onset, discharged home. Today in car, developed the facial droop. # Scores Time of exam and NIHSS (): 11/06/2020, 15:41 Level of Consciousness 1a: [0] = Alert; keenly responsive LOC Questions 1b: [1] = Answers one correctly LOC Commands 1c: [0] = Performs both tasks correctly Best Gaze 2: [0] = Normal Visual 3: [0] = No visual loss Facial Palsy 4: [2] = Partial paralysis Motor Arm Left 5a: [0] = No drift Motor Arm Right 5b: [0] = No drift Motor Leg Left 6a: [0] = No drift Motor Leg Right 6b: [0] = No drift Limb Ataxia 7: [0] = Absent Sensory 8: [0] = Normal Best Language 9: [0] = No aphasia Dysarthria 10: [0] = Normal Extinction and Inattention 11: [0] = No abnormality NIHSS Total: 3 # Data Time Head CT personally read by me (): 11/06/2020, 15:[address]: no bleed preliminarily reviewed by me, please refer to radiology read for official reading # Assessment Impression: Ischemic Stroke (Acute) # Plan Thrombolytic/Intervention: NOT IV Thrombolysis or IA Intervention candidate Thrombolytic Exclusion (< 3 hour window): non-disabling deficit stroke within 3 months Intraarterial Exclusion: non-disabling Target Blood Pressure: SBP < 220 DBP < 105 Labs: hemoglobin A1c lipid panel Imaging: (urgency: routine): MR Angiogram Head without contrast MR Angiogram Neck with contrast MRI Brain without contrast Diagnostic Test: no repeat echo Therapy/Evaluation: PT/OT evaluation speech/swallow consultation Medication: ASA 325 x1 then 81 daily Plavix 300 x1 then 75 daily Atorvastatin 80, tailor daily dose to LDL < 70 goal Other: permissive hypertension telemetry monitoring I have discussed my recommendations with the referring provider Disposition: admit # Logistics Telemedicine: Interactive 2 way audio and visual telecommunication technology was utilized during this visit Electronically signed at 11/06/2020 15:50 (Eastern Time) by Jeancarlos Villegas MD Medications and Allergies Allergies Allergy/AdvReac Type Severity Reaction Status Date / Time No Known Allergies Allergy Unverified 08/24/15 12:11 Home Medications Medication Instructions Recorded Confirmed Last Taken Type Aspirin 325 mg PO QDAY #30 tablet 10/31/20 Unknown Rx Clopidogrel [Plavix] 75 mg PO QDAY #30 tablet 10/31/20 Unknown Rx [facility] Vitamin A and D Ointment 800 mg PO DAILY 10/31/20 10/31/20 Unknown History Mecobalamin [B12 Active] 1,000 mcg PO QDAY 10/31/20 10/31/20 Unknown History Metoprolol [Lopressor TAB] 25 mg PO DAILY 10/31/20 10/31/20 Unknown History Simvastatin 40 mg PO QHS #30 tablet 10/31/20 Unknown Rx Physical Examination - Vital Signs Vital Signs: Vital Signs Temp Pulse Resp BP Pulse Ox 98.0 F 69 18 91/39 99 11/06/20 15:28 11/06/20 15:28 11/06/20 15:28 11/06/20 15:28 11/06/20 15:28 Results - Laboratory Findings Abnormal Lab Findings: Abnormal Labs 11/06/20 15:24 POC Glucose 188 H
--- NOTE | 2020-11-06 16:09 | Cat Scan Report ---
CT head/brain wo con INDICATION / CLINICAL INFORMATION: 80 years Male; CODE STROKE CALL ER MAIN AT 8199 Stroke symptoms. TECHNIQUE: Routine CT head without contrast. All CT scans at this location are performed using CT dos e reduction for ALARA by means of automated exposure control. COMPARISON: CT-10/30/2020 FINDINGS: BRAIN / INTRACRANIAL CONTENTS: Small lacunar infarcts seen in the gangliocapsular regions, including both thalami. Similar type findings seen on prior. Focus of decreased attenuation is seen in the tawnya, which was seen on prior exam. It would be difficu lt to evaluate for small areas of ischemia in these regions without diffusion imaging by MRI. Otherwise, no acute hemorrhage, mass effect, midline shift, hydrocephalus, or acute, large territori al infarct. Mild to moderate cerebral and mild cerebellar atrophy. Moderate degree of hippocampal atrophy suggest ed bilaterally. There are moderate, confluent areas of decreased attenuation in the white matter of the cerebral wood spheres. These are nonspecific findings and may be related to microangiopathy (hypertension, diabetes , atherosclerosis), given the patient's age. It might be difficult to evaluate for small areas of isc hemia without diffusion imaging by MRI. CRANIOCERVICAL JUNCTION: No significant abnormality. ORBITS: No significant abnormality of visualized orbits. SINUSES / MASTOIDS: Visualized paranasal sinuses and mastoid air cells are essentially clear. ADDITIONAL FINDINGS: Atherosclerotic disease is seen in the anterior and posterior circulation. IMPRESSION: 1. No focal mass, hemorrhage, hydrocephalus, or acute, large territorial infarct. Follow-up with diff usion imaging by MRI, as clinically warranted. CODE STROKE: Exam Completed (VERTICAL CONTOUR BAND SAW OPERATOR/CDT): 11/06/2020 2:49 PM Exam Reviewed (VERTICAL CONTOUR BAND SAW OPERATOR/CDT): 2:55 PM Time of Communication (VERTICAL CONTOUR BAND SAW OPERATOR/CDT): 3:00 PM Licensed Practitioner Receiving Report: A nurse in the emergency room-Nancy Signer Name: Charles Farley MD, III Signed: 11/06/2020 4:04 PM Workstation Name: [id number]
[2020-11-06 16:22] LABS: INR 0.89 (0.87-1.13)
[2020-11-06 16:23] LABS: Partial Thromboplastin Time 31.6 Sec. (24.2-36.6); Thrombin Time 17.6 Sec. (15.1-19.6)
[2020-11-06 16:25] LABS: Albumin 3.3 g/dL (3.9-5); Calcium 9.8 mg/dL (8.4-10.2)
[2020-11-06 16:35] LABS: Basophils # (Auto) 0.1 K/mm3 (0.0-0.1); Eosinophils # (Auto) 0.3 K/mm3 (0.0-0.4); Eosinophils % (Auto) 3.2 % (0.0-4.3); Hematocrit 38.6 % (35.5-45.6); Hemoglobin 12.4 gm/dl (11.8-15.2); Lymphocytes # (Auto) 1.8 K/mm3 (1.2-5.4); Lymphocytes % (Auto) 20.7 % (13.4-35.0); Mean Corpuscular HGB Conc 32 % (32-34); Mean Corpuscular Volume 94 fl (84-94); Monocytes # (Auto) 0.5 K/mm3 (0.0-0.8); Platelet Count 231 K/mm3 (140-440); Red Blood Count 4.13 M/mm3 (3.65-5.03); Red Cell Distribution Width 14.7 % (13.2-15.2)
[2020-11-06] MEDS ORDERED: SODIUM CHLORIDE 0.9% 1000 ML 1,000 ML IV ONE (16:42)
[2020-11-06] MEDS ORDERED: ASPIRIN 325 MG TAB PO ONE (16:42)
[2020-11-06] MEDS ORDERED: METOCLOPRAMIDE 10 MG/2 ML INJ IV PRN ×2 (23:16→23:33)
[2020-11-06] MEDS ORDERED: oxyCODONE /ACETAMINOPHEN 5-325MG TAB PO PRN (23:16)
[2020-11-06] MEDS ORDERED: ACETAMINOPHEN 325 MG TAB PO PRN (23:16)
[2020-11-06] MEDS ORDERED: ONDANSETRON 4 MG/2 ML INJ IV PRN (23:16)
--- NOTE | 2020-11-06 23:23 | History and Physical Report ---
History of Present Illness Date of examination: 11/06/20 Date of admission: 11/06/20 17:34 Chief complaint: Left facial weakness and dysarthria History of present illness: 80-year-old with history of old CVA, hypertension and hyperlipidemia and on end- stage renal disease with hemodialysis, vascular dementia, hypoventilation syndrome presents with left facial droop and dysarthria 1 hour prior to arrival in the ER. Patient continued to have a left facial droop and slurred speech. There is weakness in the left upper and left lower extremity. But able to lift both left upper and left lower extremity. No weakness on the right side. No shortness of breath. No exposure to Covid. Patient admitted 7 days ago for facial droop and slurred speech. He was diagnosed with a CVA. 1 week ago. Patient had a cardiogram and annual echocardiogram and carotid duplex ultrasound. - Past Medical History Previous Medical History?: Yes Hx CVA: Yes (1 week ago??) Hx Diabetes: Yes (IDDM) Hx Renal Disease: Yes (HD M, W, F) Additional medical history: TIA, - Surgical History Past Surgical History?: Yes - Social History Smoking Status: Never Smoker - Medications Home Medications: Home Medications Medication Instructions Recorded Confirmed Last Taken Type Aspirin 325 mg PO QDAY #30 tablet 10/31/20 Unknown Rx Clopidogrel [Plavix] 75 mg PO QDAY #30 tablet 10/31/20 [facility] Rx [facility] Vitamin A and D Ointment 800 mg PO DAILY 10/31/20 10/31/20 Unknown History Mecobalamin [B12 Active] 1,000 mcg PO QDAY 10/31/20 10/31/20 Unknown History Metoprolol [Lopressor TAB] 25 mg PO DAILY 10/31/20 10/31/20 Unknown History Simvastatin 40 mg PO QHS #30 tablet 10/31/20 Unknown Rx Review of Systems ROS: Stated complaint: POSS CVA Other details as noted in HPI Comment: Unobtainable due to pts medical conditions (Dementia) Medications and Allergies Allergies Allergy/AdvReac Type Severity Reaction Status Date / Time No Known Allergies Allergy Unverified 08/24/15 12:11 Home Medications Medication Instructions Recorded Confirmed Last Taken Type Aspirin 325 mg PO QDAY #30 tablet 10/31/20 Unknown Rx Clopidogrel [Plavix] 75 mg PO QDAY #30 tablet 10/31/20 [facility] Rx [facility] Vitamin A and D Ointment 800 mg PO DAILY 10/31/20 10/31/20 Unknown History Mecobalamin [B12 Active] 1,000 mcg PO QDAY 10/31/20 10/31/20 Unknown History Metoprolol [Lopressor TAB] 25 mg PO DAILY 10/31/20 10/31/20 Unknown History Simvastatin 40 mg PO QHS #30 tablet 10/31/20 Unknown Rx Exam - Constitutional Vitals: Temp Pulse Resp BP Pulse Ox 97.8 F 62 18 118/50 98 11/06/20 19:05 11/06/20 19:05 11/06/20 19:05 11/06/20 19:05 11/06/20 19:05 General appearance: Present: well-nourished - EENT Eyes: Present: PERRL ENT: hearing intact, clear oral mucosa, other (Left facial palsy) - Neck Neck: Present: supple, normal ROM - Respiratory Respiratory effort: normal Respiratory: bilateral: CTA - Cardiovascular Heart rate: 78 Rhythm: regular Heart Sounds: Present: S1 & S2. Absent: rub, click - Extremities Extremities: pulses symmetrical, No edema Peripheral Pulses: within normal limits - Abdominal General gastrointestinal: Present: soft, non-tender, non-distended, normal bowel sounds Male genitourinary: Present: normal - Integumentary Integumentary: Present: clear, warm, dry - Musculoskeletal Musculoskeletal: left sided weakness (4/5 power in left upper and left lower extremity) - Psychiatric Psychiatric: appropriate mood/affect, intact judgment & insight - Neurologic Neurologic: CNII-XII intact, moves all extremities HEART Score - HEART Score Troponin: Troponin T 0.062 ng/mL (0.00-0.029) H 11/06/20 15:48 Results - Labs CBC & Chem 7: 11/07/20 04:53 11/07/20 04:53 Labs: Laboratory Last Values WBC 8.9 K/mm3 (4.5-11.0) 11/06/20 15:48 RBC 4.13 M/mm3 (3.65-5.03) 11/06/20 15:48 Hgb 12.4 gm/dl (11.8-15.2) 11/06/20 15:48 Hct 38.6 % (35.5-45.6) 11/06/20 15:48 MCV 94 fl (84-94) 11/06/20 15:48 MCH 30 pg (28-32) 11/06/20 15:48 MCHC 32 % (32-34) 11/06/20 15:48 RDW 14.7 % (13.2-15.2) 11/06/20 15:48 Plt Count 231 K/mm3 (140-440) 11/06/20 15:48 Lymph % (Auto) 20.7 % (13.4-35.0) 11/06/20 15:48 [place] % (Auto) 6.0 % (0.0-7.3) 11/06/20 15:48 Eos % (Auto) 3.2 % (0.0-4.3) 11/06/20 15:48 Baso % (Auto) [employer] 11/06/20 15:48 Lymph # (Auto) 1.8 K/mm3 (1.2-5.4) 11/06/20 15:48 [place] # (Auto) 0.5 K/mm3 (0.0-0.8) 11/06/20 15:48 Eos # (Auto) 0.3 K/mm3 (0.0-0.4) 11/06/20 15:48 Baso # (Auto) 0.1 K/mm3 (0.0-0.1) 11/06/20 15:48 Seg Neutrophils % 69.4 % (40.0-70.0) 11/06/20 15:48 Seg Neutrophils # 6.2 K/mm3 (1.8-7.7) 11/06/20 15:48 PT 12.6 Sec. (12.2-14.9) 11/06/20 15:48 INR 0.89 (0.87-1.13) 11/06/20 15:48 APTT 31.6 Sec. (24.2-36.6) 11/06/20 15:48 Thrombin Time 17.6 Sec. (15.1-19.6) 11/06/20 15:48 Sodium 139 mmol/L (137-145) 11/06/20 15:48 Potassium 4.4 mmol/L (3.6-5.0) 11/06/20 15:48 Chloride 100.9 mmol/L (98-107) 11/06/20 15:48 Carbon Dioxide 25 mmol/L (22-30) 11/06/20 15:48 Anion Gap 18 mmol/L 11/06/20 15:48 BUN 27 mg/dL (9-20) H 11/06/20 15:48 Creatinine 11.0 mg/dL (0.8-1.3) H 11/06/20 15:48 Estimated GFR 5 ml/min 11/06/20 15:48 BUN/Creatinine Ratio 2 % 11/06/20 15:48 Glucose 115 mg/dL (75-100) H 11/06/20 15:48 POC Glucose 188 mg/dL (70-105) H 11/06/20 15:24 Calcium 9.8 mg/dL (8.4-10.2) 11/06/20 15:48 Total Bilirubin 0.30 mg/dL (0.1-1.2) 11/06/20 15:48 AST 13 units/L (5-40) 11/06/20 15:48 ALT 11 units/L (7-56) 11/06/20 15:48 Alkaline Phosphatase 208 units/L (35-129) H 11/06/20 15:48 Total Creatine Kinase 46 units/L (55-170) L 11/06/20 15:48 CK-MB (CK-2) 1.0 ng/mL (0.0-4.0) 11/06/20 15:48 CK-MB (CK-2) Rel Index 2.1 (0-4) 11/06/20 15:48 Troponin T 0.062 ng/mL (0.00-0.029) H 11/06/20 15:48 Total Protein 6.5 g/dL (6.3-8.2) 11/06/20 15:48 Albumin 3.3 g/dL (3.9-5) L 11/06/20 15:48 Albumin/Globulin Ratio 1.0 % 11/06/20 15:48 Short CBC 11/06/20 11/07/20 Range/Units 15:48 04:53 WBC 8.9 9.0 (4.5-11.0) K/mm3 Hgb 12.4 11.4 L (11.8-15.2) gm/dl Hct 38.6 34.3 L (35.5-45.6) % Plt Count 231 220 (140-440) K/mm3 BMP 11/06/20 11/07/20 15:48 04:53 Sodium 139 142 Potassium 4.4 4.4 Chloride 100.9 102.8 Carbon Dioxide 25 27 BUN 27 H 30 H Creatinine 11.0 H 12.0 H Glucose 115 H 53 L Calcium 9.8 9.7 Cardiac Enzymes 11/06/20 Range/Units 15:48 Total Creatine Kinase 46 L (55-170) units/L CK-MB (CK-2) 1.0 (0.0-4.0) ng/mL Troponin T 0.062 H (0.00-0.029) ng/mL Liver Function 11/06/20 11/07/20 Range/Units 15:48 04:53 Total Bilirubin 0.30 0.20 (0.1-1.2) mg/dL AST 13 6 (5-40) units/L ALT 11 9 (7-56) units/L Alkaline Phosphatase 208 H 191 H (35-129) units/L Albumin 3.3 L 3.1 L (3.9-5) g/dL Assessment and Plan Advance Directives: Yes (Full code) VTE prophylaxis?: Chemical Plan of care discussed with patient/family: Yes - Patient Problems (1) TIA (transient ischemic attack) Current Visit: Yes Status: Acute Plan to address problem: Highly likely that patient has a TIA Patient recently had a complete acute CVA work-up and was discharged 1 week ago MRI requested No MRA or carotid duplex scan and echocardiogram because they are done recently Neurology consult requested (2) Hypertension Current Visit: Yes Status: Chronic Qualifiers: Hypertension type: primary hypertension Qualified Code(s): I10 - Essential (primary) hypertension Plan to address problem: Continue antihypertensives and adjust medications (3) End-stage renal disease on hemodialysis Current Visit: Yes Status: Chronic Plan to address problem: Continue hemodialysis as per schedule Nephrology consulted No urgent need for hemodialysis (4) CVA, old, cognitive deficits Current Visit: Yes Status: Chronic Plan to address problem: PT OT and supportive care (5) Hyperlipidemia Current Visit: Yes Status: Chronic Qualifiers: Hyperlipidemia type: mixed hyperlipidemia Qualified Code(s): E78.2 - Mixed hyperlipidemia Plan to address problem: Continue statins (6) DVT prophylaxis Current Visit: No Status: Acute Plan to address problem: On heparin and GI prophylaxis
[2020-11-06] MEDS ORDERED: SODIUM CHLORIDE 0.9% 1000 ML 1,000 ML IV SCH (23:30)
[2020-11-07 06:57] LABS: Basophils # (Auto) 0.1 K/mm3 (0.0-0.1); Basophils % (Auto) 0.9 % (0.0-1.8); Eosinophils # (Auto) 0.3 K/mm3 (0.0-0.4); Hematocrit 34.3 % (35.5-45.6); Hemoglobin 11.4 gm/dl (11.8-15.2); Lymphocytes % (Auto) 22.8 % (13.4-35.0); Mean Corpuscular HGB Conc 33 % (32-34); Mean Corpuscular Volume 92 fl (84-94); Monocytes # (Auto) 0.5 K/mm3 (0.0-0.8); Monocytes % (Auto) 5.4 % (0.0-7.3); Platelet Count 220 K/mm3 (140-440); Red Blood Count 3.73 M/mm3 (3.65-5.03); Red Cell Distribution Width 14.1 % (13.2-15.2)
[2020-11-07 07:21] LABS: Albumin 3.1 g/dL (3.9-5); Calcium 9.7 mg/dL (8.4-10.2)
[2020-11-07] MEDS: HYDROmorphone 1 MG/1 ML INJ IV PRN ×2 (09:00→18:30)
[2020-11-07] MEDS: METOPROLOL TARTRATE 25 MG TAB PO SCH (09:11)
[2020-11-07] MEDS: HEPARIN 5,000 UNIT/1 ML VIAL SUB-Q SCH ×2 (09:11→22:52)
[2020-11-07] MEDS: CLOPIDOGREL 75 MG TAB PO SCH (09:11)
[2020-11-07] MEDS ORDERED: SODIUM CHLORIDE 0.9% 100 ML IV PRN (09:30)
--- NOTE | 2020-11-07 09:55 | Progress Note ---
Assessment and Plan Assessment and plan: CVA. Patient also with diagnosis of recent CVA on 10/30/20. Hypertension. ESRD on hemodialysis. Hyperlipidemia 11/07/20. Carotid ultrasound from previous admission on 10/30/20 revealed right ICA less than 50% stenosis and left ICA 50 to 69% stenosis. CT of the head negative. However, patient had no MRI/MRA or echocardiogram. Check echocardiogram and MRI/MRA this hospitalization. Neurology consultation pending History Interval history: No new issues overnight. Hospitalist Physical - Constitutional Vitals: Temp Pulse Resp BP Pulse Ox 98.0 F 64 18 115/39 97 11/07/20 04:13 11/07/20 04:13 11/07/20 04:13 11/07/20 04:13 11/07/20 04:13 General appearance: Present: well-nourished - EENT Eyes: Present: PERRL, EOM intact ENT: hearing intact, clear oral mucosa, dentition normal - Neck Neck: Present: supple, normal ROM - Respiratory Respiratory effort: normal Respiratory: bilateral: CTA - Cardiovascular Rhythm: regular Heart Sounds: Present: S1 & S2. Absent: gallop, rub - Extremities Extremities: no ischemia, No edema, Full ROM - Abdominal General gastrointestinal: soft, non-tender, non-distended, normal bowel sounds - Integumentary Integumentary: Present: clear, warm, dry - Neurologic Neurologic: CNII-XII intact, moves all extremities HEART Score - HEART Score Troponin: Troponin T 0.062 ng/mL (0.00-0.029) H 11/06/20 15:48 Results - Labs CBC & Chem 7: 11/07/20 04:53 11/07/20 04:53 Labs: Laboratory Last Values WBC 9.0 K/mm3 (4.5-11.0) 11/07/20 04:53 RBC 3.73 M/mm3 (3.65-5.03) 11/07/20 04:53 Hgb 11.4 gm/dl (11.8-15.2) L 11/07/20 04:53 Hct 34.3 % (35.5-45.6) L 11/07/20 04:53 MCV 92 fl (84-94) 11/07/20 04:53 MCH 31 pg (28-32) 11/07/20 04:53 MCHC 33 % (32-34) 11/07/20 04:53 RDW 14.1 % (13.2-15.2) 11/07/20 04:53 Plt Count 220 K/mm3 (140-440) 11/07/20 04:53 Lymph % (Auto) 22.8 % (13.4-35.0) 11/07/20 04:53 [place] % (Auto) 5.4 % (0.0-7.3) 11/07/20 04:53 Eos % (Auto) 3.0 % (0.0-4.3) 11/07/20 04:53 Baso % (Auto) 0.9 % (0.0-1.8) 11/07/20 04:53 Lymph # (Auto) 2.0 K/mm3 (1.2-5.4) 11/07/20 04:53 [place] # (Auto) 0.5 K/mm3 (0.0-0.8) 11/07/20 04:53 Eos # (Auto) 0.3 K/mm3 (0.0-0.4) 11/07/20 04:53 Baso # (Auto) 0.1 K/mm3 (0.0-0.1) 11/07/20 04:53 Seg Neutrophils % 67.9 % (40.0-70.0) 11/07/20 04:53 Seg Neutrophils # 6.1 K/mm3 (1.8-7.7) 11/07/20 04:53 PT 12.6 Sec. (12.2-14.9) 11/06/20 15:48 INR 0.89 (0.87-1.13) 11/06/20 15:48 APTT 31.6 Sec. (24.2-36.6) 11/06/20 15:48 Thrombin Time 17.6 Sec. (15.1-19.6) 11/06/20 15:48 Sodium 142 mmol/L (137-145) 11/07/20 04:53 Potassium 4.4 mmol/L (3.6-5.0) 11/07/20 04:53 Chloride 102.8 mmol/L (98-107) 11/07/20 04:53 Carbon Dioxide 27 mmol/L (22-30) 11/07/20 04:53 Anion Gap 17 mmol/L 11/07/20 04:53 BUN 30 mg/dL (9-20) H 11/07/20 04:53 Creatinine 12.0 mg/dL (0.8-1.3) H 11/07/20 04:53 Estimated GFR 5 ml/min 11/07/20 04:53 BUN/Creatinine Ratio 3 % 11/07/20 04:53 Glucose 53 mg/dL (75-100) L 11/07/20 04:53 POC Glucose 60 mg/dL (70-105) L 11/07/20 07:49 Hemoglobin A1c 5.9 % (4-6) 11/07/20 04:53 Calcium 9.7 mg/dL (8.4-10.2) 11/07/20 04:53 Total Bilirubin 0.20 mg/dL (0.1-1.2) 11/07/20 04:53 AST 6 units/L (5-40) 11/07/20 04:53 ALT 9 units/L (7-56) 11/07/20 04:53 Alkaline Phosphatase 191 units/L (35-129) H 11/07/20 04:53 Total Creatine Kinase 46 units/L (55-170) L 11/06/20 15:48 CK-MB (CK-2) 1.0 ng/mL (0.0-4.0) 11/06/20 15:48 CK-MB (CK-2) Rel Index 2.1 (0-4) 11/06/20 15:48 Troponin T 0.062 ng/mL (0.00-0.029) H 11/06/20 15:48 Total Protein 5.9 g/dL (6.3-8.2) L 11/07/20 04:53 Albumin 3.1 g/dL (3.9-5) L 11/07/20 04:53 Albumin/Globulin Ratio 1.1 % 11/07/20 04:53 Morrison/IV: Voiding Method Bedpan Active Medications - Current Medications Current Medications: Generic Name Dose Route Start Last Admin Trade Name Freq PRN Reason Stop Dose Admin Acetaminophen 650 mg 11/06/20 23:16 Acetaminophen 325 Mg Tab PO Q4H PRN Pain MILD(1-3)/Fever >100.5/MUÑIZ Aspirin 325 mg 11/07/20 10:00 11/07/20 09:11 Aspirin 325 Mg Tab PO 325 mg QDAY GO Administration Clopidogrel Bisulfate 75 mg 11/07/20 10:00 11/07/20 09:11 Clopidogrel 75 Mg Tab PO 75 mg QDAY GO Administration Famotidine 20 mg 11/07/20 10:00 11/07/20 09:11 Famotidine 20 Mg/2 Ml Inj IV 20 mg DAILY GO Administration Heparin Sodium (Porcine) 5,000 unit 11/07/20 10:00 11/07/20 09:11 Heparin 5,000 Unit/1 Ml Vial SUB-Q 5,000 unit Q12HR GO Administration Hydromorphone HCl 0.5 mg 11/06/20 23:16 Hydromorphone 1 Mg/1 Ml Inj IV Q3H PRN Pain , Severe (7-10) Sodium Chloride 1,000 mls @ 75 mls/hr 11/06/20 23:30 Nacl 0.9% 1000 Ml IV DIRECT GO Sodium Chloride 100 mls @ 999 mls/hr 11/07/20 09:30 Nacl 0.9% IV LESLIE PRN Hypotension Metoclopramide HCl 2.5 mg 11/06/20 23:33 Metoclopramide 10 Mg/2 Ml Inj IV Q6H PRN Nausea And Vomiting Metoprolol Tartrate 25 mg 11/07/20 10:00 11/07/20 09:11 Metoprolol Tartrate 25 Mg Tab PO 25 mg DAILY GO Administration Miscellaneous Medication 1,000 mcg 11/07/20 10:00 Mecobalamin [B12 Active] PO QDAY [facility] Ondansetron HCl 4 mg 11/06/20 23:16 Ondansetron 4 Mg/2 Ml Inj IV Q8H PRN Nausea And Vomiting Oxycodone/Acetaminophen 1 tab 11/06/20 23:16 Oxycodone /Acetaminophen 5-325mg Tab PO Q6H PRN Pain, Moderate (4-6) Pravastatin Sodium 80 mg 11/07/20 22:00 Pravastatin 80 Mg Tab PO QHS [facility] Sodium Chloride 10 ml 11/07/20 10:00 11/07/20 09:11 Sodium Chloride 0.9% 10 Ml Flush Syringe IV 10 ml BID GO Administration Sodium Chloride 10 ml 11/06/20 23:16 Sodium Chloride 0.9% 10 Ml Flush Syringe IV PRN PRN LINE FLUSH
[2020-11-07] MEDS ORDERED: FAMOTIDINE 20 MG/2 ML INJ IV SCH ×2 (10:00)
[2020-11-07] MEDS ORDERED: MECOBALAMIN 1000 MCG PO SCH (10:00)
[2020-11-07] MEDS ORDERED: ASPIRIN 325 MG TAB PO SCH (10:00)
--- NOTE | 2020-11-07 10:04 | Consultation ---
History of Present Illness Consult date: 11/07/20 History of present illness: Left facial weakness and dysarthria History of present illness: 80-year-old with history of old CVA, hypertension and hyperlipidemia and on end- stage renal disease with hemodialysis, vascular dementia, hypoventilation syndrome presents with left facial droop and dysarthria 1 hour prior to arrival in the ER. Patient continued to have a left facial droop and slurred speech. There is weakness in the left upper and left lower extremity. But able to lift both left upper and left lower extremity. No weakness on the right side. No shortness of breath. No exposure to Covid. Patient admitted 7 days ago for fac ial droop and slurred speech. He was diagnosed with a CVA. 1 week ago. Patient had a cardiogram and annual echocardiogram and carotid duplex ultrasound. Currently pt. is feeling better on the floor according to him he is not weak, he is taking med at home just placed on ASA and Plavix in addition to pravachole MRI brain is pending - Past Medical History Previous Medical History?: Yes Hx CVA: Yes (1 week ago??) Hx Diabetes: Yes (IDDM) Hx Renal Disease: Yes (HD M, W, F) Additional medical history: TIA, - Surgical History Past Surgical History?: Yes - Social History Smoking Status: Never Smoker - Medications Home Medications: Home Medications Medication Instructions Recorded Confirmed Last Taken Type Aspirin 325 mg PO QDAY #30 tablet 10/31/20 Unknown Rx Clopidogrel [Plavix] 75 mg PO QDAY #30 tablet 10/31/20 [facility] Rx [facility] Vitamin A and D Ointment 800 mg PO DAILY 10/31/20 10/31/20 Unknown History Mecobalamin [B12 Active] 1,000 mcg PO QDAY 10/31/20 10/31/20 Unknown History Metoprolol [Lopressor TAB] 25 mg PO DAILY 10/31/20 10/31/20 Unknown History Simvastatin 40 mg PO QHS #30 tablet 10/31/20 Unknown Rx Review of Systems ROS: Stated complaint: POSS CVA Other details as noted in HPI Comment: Unobtainable due to pts medical conditions (Dementia) Medications and Allergies Allergies Allergy/AdvReac Type Severity Reaction Status Date / Time No Known Allergies Allergy Unverified 08/24/15 12:11 Home Medications Medication Instructions Recorded Confirmed Last Taken Type Aspirin 325 mg PO QDAY #30 tablet 10/31/20 Unknown Rx Clopidogrel [Plavix] 75 mg PO QDAY #30 tablet 10/31/20 Unknown Rx [facility] Vitamin A and D Ointment 800 mg PO DAILY 10/31/20 10/31/20 Unknown History Mecobalamin [B12 Active] 1,000 mcg PO QDAY 10/31/20 10/31/20 Unknown History Metoprolol [Lopressor TAB] 25 mg PO DAILY 10/31/20 10/31/20 Unknown History Simvastatin 40 mg PO QHS #30 tablet 10/31/20 Unknown Rx Medications and Allergies Allergies Allergy/AdvReac Type Severity Reaction Status Date / Time No Known Allergies Allergy Unverified 08/24/15 12:11 Home Medications Medication Instructions Recorded Confirmed Last Taken Type Aspirin 325 mg PO QDAY #30 tablet 10/31/20 Unknown Rx Clopidogrel [Plavix] 75 mg PO QDAY #30 tablet 10/31/20 Unknown Rx [facility] Vitamin A and D Ointment 800 mg PO DAILY 10/31/20 10/31/20 Unknown History Mecobalamin [B12 Active] 1,000 mcg PO QDAY 10/31/20 10/31/20 Unknown History Metoprolol [Lopressor TAB] 25 mg PO DAILY 10/31/20 10/31/20 Unknown History Simvastatin 40 mg PO QHS #30 tablet 10/31/20 Unknown Rx Active Meds: Active Medications Acetaminophen (Acetaminophen 325 Mg Tab) 650 mg PO Q4H PRN PRN Reason: Pain MILD(1-3)/Fever >100.5/MUÑIZ Aspirin (Aspirin 325 Mg Tab) 325 mg PO QDAY [facility] Last Admin: 11/07/20 09:11 Dose: 325 mg Documented by: Clopidogrel Bisulfate (Clopidogrel 75 Mg Tab) 75 mg PO QDAY [facility] Last Admin: 11/07/20 09:11 Dose: 75 mg Documented by: Famotidine (Famotidine 20 Mg/2 Ml Inj) 20 mg IV DAILY [facility] Last Admin: 11/07/20 09:11 Dose: 20 mg Documented by: Heparin Sodium (Porcine) (Heparin 5,000 Unit/1 Ml Vial) 5,000 unit SUB-Q Q12HR [facility] Last Admin: 11/07/20 09:11 Dose: 5,000 unit Documented by: Hydromorphone HCl (Hydromorphone 1 Mg/1 Ml Inj) 0.5 mg IV Q3H PRN PRN Reason: Pain , Severe (7-10) Sodium Chloride (Nacl 0.9% 1000 Ml) 1,000 mls @ 75 mls/hr IV DIRECT [facility] Sodium Chloride (Nacl 0.9%) 100 mls @ 999 mls/hr IV LESLIE PRN PRN Reason: Hypotension Metoclopramide HCl (Metoclopramide 10 Mg/2 Ml Inj) 2.5 mg IV Q6H PRN PRN Reason: Nausea And Vomiting Metoprolol Tartrate (Metoprolol Tartrate 25 Mg Tab) 25 mg PO DAILY [facility] Last Admin: 11/07/20 09:11 Dose: 25 mg Documented by: Miscellaneous Medication (Mecobalamin [B12 Active]) 1,000 mcg PO QDAY [facility] Ondansetron HCl (Ondansetron 4 Mg/2 Ml Inj) 4 mg IV Q8H PRN PRN Reason: Nausea And Vomiting Oxycodone/Acetaminophen (Oxycodone /Acetaminophen 5-325mg Tab) 1 tab PO Q6H PRN PRN Reason: Pain, Moderate (4-6) Pravastatin Sodium (Pravastatin 80 Mg Tab) 80 mg PO QHS [facility] Sodium Chloride (Sodium Chloride 0.9% 10 Ml Flush Syringe) 10 ml IV BID [facility] Last Admin: 11/07/20 09:11 Dose: 10 ml Documented by: Sodium Chloride (Sodium Chloride 0.9% 10 Ml Flush Syringe) 10 ml IV PRN PRN PRN Reason: LINE FLUSH Physical Examination - Vital Signs Vital Signs: Vital Signs Temp Pulse Resp BP Pulse Ox 98.0 F 69 18 91/39 99 11/06/20 15:28 11/06/20 15:28 11/06/20 15:28 11/06/20 15:28 11/06/20 15:28 - Constitutional General appearance: comfortable - EENT EENT: Present: PERRL, mucous membranes moist - Respiratory Respiratory: Present: chest non-tender, lungs clear, rhonchi - Cardiovascular Cardiovascular: Present: regular rate, normal S1, normal S2 Extremities: Present: no peripheral edema bilatateraly, no clubbing, cyanosis - Gastrointestinal Gastrointestinal: Present: normoactive bowel sounds - Integumentary Integumentary: Present: normal - Neurologic Cranial nerve examination: PERRL, EOMI, intact Speech examination: intact Sensorimotor examination: intact Detailed motor examination: grossly full strength in - Psychiatric Psychiatric: Present: other (he is alert to place and date , knows his birthday and home address , does not know why he is in hospital ) - Level of Consciousness 1a. Level of Consciousness: alert/keenly responsive - LOC Questions 1b. LOC Questions: answers both correctly - LOC Command 1c. LOC Commands: performs tasks correctly - Best Gaze 2. Best Gaze: normal - Visual 3. Visual: no visual loss - Facial Palsy 4. Facial Palsy: normal symmetrical movement - Motor Arm 5a. Motor Arm Left: no drift 5b. Motor Arm Right: no drift - Motor Leg 6a. Motor Leg Left: no drift 6b. Motor Leg Right: no drift - Limb Ataxia 7. Limb Ataxia: absent - Sensory 8. Sensory: normal - Best Language 9. Best Language: no aphasia Results - Laboratory Findings CBC and BMP: 11/07/20 04:53 11/07/20 04:53 Abnormal Lab Findings: Abnormal Labs 11/06/20 11/06/20 11/07/20 15:24 15:48 04:53 Hgb 11.4 L Hct 34.3 L BUN 27 H Creatinine 11.0 H Glucose 115 H POC Glucose 188 H Alkaline Phosphatase 208 H Total Creatine Kinase 46 L Troponin T 0.062 H Total Protein Albumin 3.3 L 11/07/20 11/07/20 04:53 07:49 Hgb Hct BUN 30 H Creatinine 12.0 H Glucose 53 L POC Glucose 60 L Alkaline Phosphatase 191 H Total Creatine Kinase Troponin T Total Protein 5.9 L Albumin 3.1 L Assessment and Plan Assessment and Plan Advance Directives: Yes (Full code) VTE prophylaxis?: Chemical Plan of care discussed with patient/family: Yes - Patient Problems # this is 80ys old male with hx of HTN ,HLP ,ESRD on dialysis, discharged from hospital last week after he was diagnosed with CVA and right side weekness , presented with slurred speech and right side weakness -- resolved - TIA can not be excluded -Ct brain is unremarkable -initial NIH#3-- now is #0 -Patient recently had a complete acute CVA work-up and was discharged 1 week ago -MRI brain is pending -No MRA or carotid duplex scan and echocardiogram because they are done recently -he is on ASA 325 mg and Plavix 75 mg daily --will cahneg ASA to 81 mg -Pravachol 80 mg -LDL# pending # Hypertension -Continue antihypertensives and adjust medications # End-stage renal disease on hemodialysis -Continue hemodialysis as per schedule -BUN/Cr#17/02 # CVA, old, -PT OT and supportive care #cognitive deficits -possible underlying mild dementia mostly subcortical - Hyperlipidemia -Continue statins--Pravachol #80 mg daily -check LDL # DVT prophylaxis -On SQ heparin and GI prophylaxis PLAN 1- As above 2- Pt/St therapy 3- Review MRI brain and lipid profil 4- ASA 81 mg and Plavix 75 mg daily will follow
[2020-11-07 10:52] LABS: Hepatitis B Surface Antigen Nonreactive (Negative)
[2020-11-07 10:54] LABS: Hepatitis C Virus Antibody Non-Reactive (NonReactive)
--- NOTE | 2020-11-07 13:01 | Magnetic Resonance Report ---
MRI BRAIN WITHOUT CONTRAST INDICATION / CLINICAL INFORMATION: CVA. LT FACIAL DROOP. TECHNIQUE: Multisequence, multiplanar images were obtained. COMPARISON: CT head 11/06/2020 FINDINGS: CEREBRAL and CEREBELLAR HEMISPHERES: There is moderate diffuse volume loss and mild nonspecific chron ic periventricular white matter changes. There are 6-8 small foci of diffusion restriction in the rig ht posterior frontal cortex measuring up to 8 mm in greatest dimension. This appears to involve the p recentral gyrus on the right side. No other areas of diffusion restriction are identified. 2 chronic lacunar infarcts are identified in the tawnya measuring up to 5 mm. Tiny chronic lacunar infarcts are also identified in both thalami. No large chronic infarct. No evidence of mass or mass effect. No mi dline shift. No acute hemorrhage. No extra-axial fluid collection. VENTRICLES: Normal in size and configuration for age. VISUALIZED ORBITS: No significant abnormality. VISUALIZED PARANASAL SINUSES: No significant abnormality. ADDITIONAL FINDINGS: None. IMPRESSION: Multiple small foci of diffusion restriction are identified in the posterior right frontal cortex con sistent with subacute ischemia. Advanced volume loss. Nonspecific chronic white matter changes. Multiple chronic lacunar infarcts in both thalami and tawnya. Signer Name: Elan Sullivan Jr, MD Signed: 11/07/2020 12:57 PM Workstation Name: [id number]
[2020-11-07 14:20] LABS: Chol/HDL Ratio 3.92 %
--- NOTE | 2020-11-07 17:28 | Consultation ---
History of Present Illness - Reason for Consult Consult date: 11/07/20 end stage renal disease - History of Present Illness This is a 80-year-old with end-stage renal disease on hemodialysis, history of CVA, vascular dementia who presented with left facial droop and dysarthria along with left upper and lower extremity weakness. He was admitted for stroke workup and nephrology was contacted for ESRD management. He denies chest pain, shortness of breath and dizziness. Medications and Allergies Allergies Allergy/AdvReac Type Severity Reaction Status Date / Time No Known Allergies Allergy Unverified 08/24/15 12:11 Home Medications Medication Instructions Recorded Confirmed Last Taken Type Aspirin 325 mg PO QDAY #30 tablet 10/31/20 Unknown Rx Clopidogrel [Plavix] 75 mg PO QDAY #30 tablet 10/31/20 Unknown Rx [facility] Vitamin A and D Ointment 800 mg PO DAILY 10/31/20 10/31/20 Unknown History Mecobalamin [B12 Active] 1,000 mcg PO QDAY 10/31/20 10/31/20 Unknown History Metoprolol [Lopressor TAB] 25 mg PO DAILY 10/31/20 10/31/20 Unknown History Simvastatin 40 mg PO QHS #30 tablet 10/31/20 Unknown Rx Active Meds: Active Medications Acetaminophen (Acetaminophen 325 Mg Tab) 650 mg PO Q4H PRN PRN Reason: Pain MILD(1-3)/Fever >100.5/MUÑIZ Aspirin (Aspirin 325 Mg Tab) 81 mg PO QDAY [facility] Clopidogrel Bisulfate (Clopidogrel 75 Mg Tab) 75 mg PO QDAY [facility] Last Admin: 11/07/20 09:11 Dose: 75 mg Documented by: Famotidine (Famotidine 20 Mg Tab) 20 mg PO DAILY [facility] Heparin Sodium (Porcine) (Heparin 5,000 Unit/1 Ml Vial) 5,000 unit SUB-Q Q12HR [facility] Last Admin: 11/07/20 09:11 Dose: 5,000 unit Documented by: Hydromorphone HCl (Hydromorphone 1 Mg/1 Ml Inj) 0.5 mg IV Q3H PRN PRN Reason: Pain , Severe (7-10) Sodium Chloride (Nacl 0.9% 1000 Ml) 1,000 mls @ 75 mls/hr IV DIRECT [facility] Sodium Chloride (Nacl 0.9%) 100 mls @ 999 mls/hr IV LESLIE PRN PRN Reason: Hypotension Metoclopramide HCl (Metoclopramide 10 Mg/2 Ml Inj) 2.5 mg IV Q6H PRN PRN Reason: Nausea And Vomiting Metoprolol Tartrate (Metoprolol Tartrate 25 Mg Tab) 25 mg PO DAILY [facility] Last Admin: 11/07/20 09:11 Dose: 25 mg Documented by: Ondansetron HCl (Ondansetron 4 Mg/2 Ml Inj) 4 mg IV Q8H PRN PRN Reason: Nausea And Vomiting Oxycodone/Acetaminophen (Oxycodone /Acetaminophen 5-325mg Tab) 1 tab PO Q6H PRN PRN Reason: Pain, Moderate (4-6) Pravastatin Sodium (Pravastatin 80 Mg Tab) 80 mg PO QHS [facility] Sodium Chloride (Sodium Chloride 0.9% 10 Ml Flush Syringe) 10 ml IV BID [facility] Last Admin: 11/07/20 09:11 Dose: 10 ml Documented by: Sodium Chloride (Sodium Chloride 0.9% 10 Ml Flush Syringe) 10 ml IV PRN PRN PRN Reason: LINE FLUSH Review of Systems Constitutional: no fever, no chills Ears, nose, mouth and throat: no nasal congestion, no nasal discharge Cardiovascular: no chest pain, no shortness of breath Respiratory: no cough, no shortness of breath Gastrointestinal: no nausea, no vomiting Musculoskeletal: no muscle weakness, no muscle cramps Integumentary: no rash, no pruritis Neurological: weakness Psychiatric: no anxiety, no paranoia Endocrine: no polyphagia, no excessive thirst Exam - Vital Signs Vital signs: Vital Signs Temp Pulse Resp BP Pulse Ox 98.0 F 69 18 91/39 99 11/06/20 15:28 11/06/20 15:28 11/06/20 15:28 11/06/20 15:28 11/06/20 15:28 - Physical Exam Narrative exam: General: No acute distress HEENT: Oral mucosa moist Neck: Supple, no JVD Chest: Clear to auscultation bilaterally Heart: RRR, S1 and S2, no pericardial rub Abdomen: Soft, nontender, no renal bruit Extremity: No peripheral cyanosis, edema Neurological: Alert, awake, no asterixis Dermatology: No skin rash Psych: No agitation Musculoskeletal: No joint effusion Results - Lab Results 11/07/20 04:53 11/07/20 04:53 Most recent lab results Calcium 9.7 mg/dL (8.4-10.2) 11/07/20 04:53 Assessment and Plan Assessment - End-stage renal disease on hemodialysis - Hypertension - Anemia of ESRD - Stroke - Hyperparathyroidism - Hyperphosphatemia Recommendations - HD today, comtinue TTS - Monitor labs and volume status daily and assess need for additional dialysis session - Continue home antihypertensives - Hold antihypertensives on hemodialysis days for systolics less than 160 - No indication for Epogen with HD - Check PTH, P - ESRD diet with 1.4 g/kg per day protein - Renally dose medication for creatinine clearance less than 15 cc/min - Consent was obtained from patient for dialysis
--- NOTE | 2020-11-07 17:44 | Electrocardiograph Report ---
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
[2020-11-07] MEDS: ASPIRIN 325 MG TAB PO SCH (18:38)
[2020-11-07] MEDS ORDERED: NON-FORMULARY EACH (Simvastatin [Simvastatin] 40 MG Tablet) PO SCH (22:00)
[2020-11-07] MEDS ORDERED: PRAVASTATIN 80 MG TAB PO SCH (22:00)
--- NOTE | 2020-11-08 08:35 | Discharge Summary ---
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 The patient had a recent admission and was diagnosed with CVA on 10/30/2020. Carotid ultrasound from previous admission on 10/30/20 revealed right ICA less than 50% stenosis and left ICA 50 to 69% stenosis. CT of the head negative. However, patient had no MRI/MRA or echocardiogram. The patient was readmitted here again with diagnosis of TIA and ESRD. Neurology was consulted. CT of the head was again negative. MRI was completed and showed no acute changes but revealed multiple small foci of diffusion restriction identified in the posterior right frontal cortex consistent with subacute ischemia. Patient also had multiple chronic lacunar infarcts in both thalami and tawnya. Neurology recommended continuing aspirin and Plavix and follow-up with PT evaluation. If neurology and physical therapy cleared the patient, patient will likely discharge home today. Dedicated discharge time 35 minutes Disposition: 01 HOME / SELF CARE / HOMELESS Final Discharge Diagnosis (Prints w/discharge instructions): TIA, ESRD, obesity hypoventilation syndrome, vascular dementia, cerebral atherosclerosis Core Measure Documentation - Palliative Care Palliative Care/ Comfort Measures: Not Applicable - Core Measures Any of the following diagnoses?: none Exam - Constitutional Vitals: Temp Pulse Resp BP Pulse Ox 98.2 F 77 18 134/61 97 11/08/20 04:19 11/08/20 04:19 11/08/20 04:19 11/08/20 04:19 11/08/20 04:19 General appearance: Present: no acute distress, well-nourished - EENT Eyes: Present: PERRL ENT: hearing intact, clear oral mucosa - Neck Neck: Present: supple, normal ROM - Respiratory Respiratory effort: normal Respiratory: bilateral: CTA - Cardiovascular Heart Sounds: Present: S1 & S2. Absent: rub, click - Extremities Extremities: pulses symmetrical, No edema Peripheral Pulses: within normal limits - Abdominal General gastrointestinal: Present: soft, non-tender, non-distended, normal bowel sounds Male genitourinary: Present: normal - Integumentary Integumentary: Present: clear, warm, dry - Musculoskeletal Musculoskeletal: gait normal, strength equal bilaterally - Psychiatric Psychiatric: appropriate mood/affect, intact judgment & insight - Neurologic Neurologic: CNII-XII intact, moves all extremities Plan Activity: advance as tolerated Weight Bearing Status: Weight Bear as Tolerated Diet: low fat, low cholesterol, low salt Follow up with: PRIMARY CARE, [Primary Care Provider] - 7 Days Prescriptions: Aspirin 81 mg PO QDAY #30 tablet Metoprolol [Lopressor TAB] 25 mg PO DAILY #30 Clopidogrel [Plavix] 75 mg PO QDAY #30 tablet Simvastatin 40 mg PO QHS #30 tablet
[2020-11-08] MEDS ORDERED: FAMOTIDINE 20 MG TAB PO SCH (10:00)
[2020-11-08] MEDS: METOPROLOL TARTRATE 25 MG TAB PO SCH (11:00)
[2020-11-08] MEDS: CLOPIDOGREL 75 MG TAB PO SCH (11:00)
[2020-11-08] MEDS: HEPARIN 5,000 UNIT/1 ML VIAL SUB-Q SCH (11:00)
[2020-11-08] MEDS: ASPIRIN 325 MG TAB PO SCH (11:05)
--- NOTE | 2020-11-08 11:38 | Progress Note ---
Assessment and Plan Assessment and Plan Advance Directives: Yes (Full code) VTE prophylaxis?: Chemical Plan of care discussed with patient/family: Yes - Patient Problems # this is 80ys old male with hx of HTN ,HLP ,ESRD on dialysis, discharged from hospital last week after he was diagnosed with CVA and right side weekness , presented with slurred speech and right side weakness -- resolved - TIA can not be excluded -Ct brain is unremarkable -initial NIH#3-- now is #0-1 -Patient recently had a complete acute CVA work-up and was discharged 1 week ago -MRI brain is remarkable for few empoly right posterior frontal region -No MRA or carotid duplex scan and echocardiogram because they are done recently -he is on ASA 325 mg and Plavix 75 mg daily --will cahneg ASA to 81 mg -Pravachol 80 mg -LDL#60 -cardiac cath lab technologist during his stay is Sinus rhythm # Hypertension -Continue antihypertensives and adjust medications # Underlying dementia - mostly subcortical related to multiinfarcr # End-stage renal disease on hemodialysis -Continue hemodialysis as per schedule -BUN/Cr#27/ # CVA, old, -PT OT and supportive care #cognitive deficits -possible underlying mild dementia mostly subcortical - Hyperlipidemia -Continue statins--Pravachol #80 mg daily -check LDL # DVT prophylaxis -On SQ heparin and GI prophylaxis PLAN 1- As above 2- Pt/St therapy 3- ASA 81 mg and Plavix 75 mg daily 4- Consider MCOT on discharge due to recurrent CVA with unrevealing work up 5- Neurology follow as well as cardiology. will sign off Subjective Date of service: 11/08/20 Principal diagnosis: left side weakness Interval history: doing well slight left side weakness he is disoriented to date or place knows his age and birthdate pt evaluated today Objective - Vital Sign Vital Signs - 12hr 11/08/20 11/08/20 11/08/20 00:00 01:00 04:19 Temperature 98.2 F Pulse Rate 67 77 Respiratory 18 Rate Blood Pressure 134/61 O2 Sat by Pulse 98 97 Oximetry 11/08/20 08:15 Temperature 98.4 F Pulse Rate 72 Respiratory 18 Rate Blood Pressure 122/40 O2 Sat by Pulse 97 Oximetry - General Apperance Constitutional: comfortable - EENT EENT: PERRL, mucous membranes moist - Respiratory Respiratory: chest non-tender, lungs clear, rhonchi - Cardiovascular Cardiovascular: regular rate, normal S1, normal S2 Extremities: no peripheral edema bilat, no clubbing, cyanosis - Gastrointestinal Gastrointestinal: normoactive bowel sounds - Integumentary Integumentary: normal - Neurologic Cranial nerve examination: anosmic, PERRL, EOMI, intact Speech examination: intact Detailed motor examination: grossly full strength in, other (slight left upper and to lesser extent lower side weakness , gait not done ) - Laboratory Findings CBC and BMP: 11/07/20 04:53 11/07/20 04:53 Abnormal Lab Findings: Abnormal Labs 11/06/20 11/06/20 11/07/20 15:24 15:48 04:53 Hgb 11.4 L Hct 34.3 L BUN 27 H Creatinine 11.0 H Glucose 115 H POC Glucose 188 H Alkaline Phosphatase 208 H Total Creatine Kinase 46 L Troponin T 0.062 H Total Protein Albumin 3.3 L HDL Cholesterol 11/07/20 11/07/20 11/07/20 04:53 07:49 13:12 Hgb Hct BUN 30 H Creatinine 12.0 H Glucose 53 L POC Glucose 60 L Alkaline Phosphatase 191 H Total Creatine Kinase Troponin T Total Protein 5.9 L Albumin 3.1 L HDL Cholesterol 28 L
--- NOTE | 2020-11-08 13:02 | Progress Note ---
Assessment and Plan Assessment - End-stage renal disease on hemodialysis - Hypertension - Anemia of ESRD - Stroke - Hyperparathyroidism - Hyperphosphatemia Recommendations - Continue HD TTS - Monitor labs and volume status daily and assess need for additional dialysis session - Continue home antihypertensives - Hold antihypertensives on hemodialysis days for systolics less than 160 - No indication for Epogen with HD - F/u PTH, P - ESRD diet with 1.4 g/kg per day protein - Renally dose medication for creatinine clearance less than 15 cc/min - Neurology and primary note reviewed Subjective Date of service: 11/08/20 Principal diagnosis: left side weakness Interval history: Resting in bed. Denies chest pain or shortness of breath. Objective - Exam Narrative Exam: General: No acute distress HEENT: Oral mucosa moist Neck: Supple, no JVD Chest: Clear to auscultation bilaterally Heart: RRR, S1 and S2, no pericardial rub Abdomen: Soft, nontender, no renal bruit Extremity: No peripheral cyanosis, edema Neurological: Alert, awake, no asterixis Dermatology: No skin rash Psych: No agitation Musculoskeletal: No joint effusion - Vital Signs Vital signs: Vital Signs - 12hr 11/08/20 11/08/20 11/08/20 04:19 08:15 12:00 Temperature 98.2 F 98.4 F Pulse Rate 77 72 Respiratory 18 18 Rate Blood Pressure 134/61 122/40 O2 Sat by Pulse 97 97 96 Oximetry 11/08/20 12:11 Temperature 98.0 F Pulse Rate 67 Respiratory 18 Rate Blood Pressure 116/45 O2 Sat by Pulse 100 Oximetry - Lab 11/07/20 04:53 11/07/20 04:53 Most recent lab results Calcium 9.7 mg/dL (8.4-10.2) 11/07/20 04:53 Medications & Allergies - Medications Allergies/Adverse Reactions: Allergies No Known Allergies Allergy (Unverified 08/24/15 12:11) Home Medications: Home Medications Medication Instructions Recorded Confirmed Last Taken Type [facility] Vitamin A and D Ointment 800 mg PO DAILY 10/31/20 10/31/20 Unknown History Mecobalamin [B12 Active] 1,000 mcg PO QDAY 10/31/20 10/31/20 Unknown History Aspirin 81 mg PO QDAY #30 tablet 11/08/20 Unknown Rx Clopidogrel [Plavix] 75 mg PO QDAY #30 tablet 11/08/20 Unknown Rx Famotidine [Pepcid] 20 mg PO DAILY tablet 11/08/20 Unknown Rx Metoprolol [Lopressor TAB] 25 mg PO DAILY #30 11/08/20 Unknown Rx Simvastatin 40 mg PO QHS #30 tablet 11/08/20 Unknown Rx Active Medications: Generic Name Dose Route Start Last Admin Trade Name Freq PRN Reason Stop Dose Admin Acetaminophen 650 mg 11/06/20 23:16 Acetaminophen 325 Mg Tab PO Q4H PRN Pain MILD(1-3)/Fever >100.5/MUÑIZ Aspirin 81 mg 11/09/20 10:00 Aspirin 81 Mg Tab Chew PO QDAY GO Clopidogrel Bisulfate 75 mg 11/07/20 10:00 11/08/20 11:00 Clopidogrel 75 Mg Tab PO 75 mg QDAY GO Administration Famotidine 20 mg 11/08/20 10:00 11/08/20 11:00 Famotidine 20 Mg Tab PO 20 mg DAILY GO Administration Heparin Sodium (Porcine) 5,000 unit 11/07/20 10:00 11/08/20 11:00 Heparin 5,000 Unit/1 Ml Vial SUB-Q 5,000 unit Q12HR GO Administration Hydromorphone HCl 0.5 mg 11/06/20 23:16 11/07/20 18:30 Hydromorphone 1 Mg/1 Ml Inj IV 0.5 mg Q3H PRN Administration Pain , Severe (7-10) Sodium Chloride 1,000 mls @ 75 mls/hr 11/06/20 23:30 11/07/20 22:54 Nacl 0.9% 1000 Ml IV 75 mls/hr DIRECT GO Administration Sodium Chloride 100 mls @ 999 mls/hr 11/07/20 09:30 Nacl 0.9% IV LESLIE PRN Hypotension Metoclopramide HCl 2.5 mg 11/06/20 23:33 Metoclopramide 10 Mg/2 Ml Inj IV Q6H PRN Nausea And Vomiting Metoprolol Tartrate 25 mg 11/07/20 10:00 11/08/20 11:00 Metoprolol Tartrate 25 Mg Tab PO 25 mg DAILY GO Administration Ondansetron HCl 4 mg 11/06/20 23:16 Ondansetron 4 Mg/2 Ml Inj IV Q8H PRN Nausea And Vomiting Oxycodone/Acetaminophen 1 tab 11/06/20 23:16 Oxycodone /Acetaminophen 5-325mg Tab PO Q6H PRN Pain, Moderate (4-6) Pravastatin Sodium 80 mg 11/07/20 22:00 11/07/20 22:52 Pravastatin 80 Mg Tab PO 80 mg QHS GO Administration Sodium Chloride 10 ml 11/07/20 10:00 11/08/20 11:01 Sodium Chloride 0.9% 10 Ml Flush Syringe IV 10 ml BID GO Administration Sodium Chloride 10 ml 11/06/20 23:16 Sodium Chloride 0.9% 10 Ml Flush Syringe IV PRN PRN LINE FLUSH
[2020-11-08 16:40] VITALS: BP 115/50
[2020-11-09] MEDS ORDERED: ASPIRIN 81 MG TAB CHEW PO SCH (10:00)
== END 2020-11-08 19:56 | disposition home or self-care (01) ==
LOC: ED 15:18 → 4A 17:34 → OBSVTOIN 23:16 → INTOOBSV 23:16
PROVIDERS: ADMIT Internal Medicine; ATTEND Hospitalist
DX: I63.9 Cerebral infarction, unspecified (principal); G45.9 Transient cerebral ischemic attack, unspecified; I12.0 Hypertensive chronic kidney disease with stage 5 chronic kidney disease or end stage renal disease; N18.6 End stage renal disease; D63.1 Anemia in chronic kidney disease; N17.9 Acute kidney failure, unspecified; E83.39 Other disorders of phosphorus metabolism; F03.90 Unspecified dementia, unspecified severity, without behavioral disturbance, psychotic disturbance, mood disturbance, and anxiety; E78.5 Hyperlipidemia, unspecified; R41.89 Other symptoms and signs involving cognitive functions and awareness; R29.703 NIHSS score 3; R29.818 Other symptoms and signs involving the nervous system; Z86.73 Personal history of transient ischemic attack (TIA), and cerebral infarction without residual deficits; Z99.2 Dependence on renal dialysis; Z79.899 Other long term (current) drug therapy; Z98.890 Other specified postprocedural states; Z79.82 Long term (current) use of aspirin
CPT/HCPCS: 36415; 70450; 70551; 80053; 80061; 80074; 82550; 82553; 82962; 83036; 83970; 84100; 84484; 85025; 85610; 85670; 85730; 93005; 96361; 96372; 96374; 96375; 96376; 97116; 97162; 97165; 97535; 99291; A9270; G0257; G0378; J1170; J1644; J7030; 96365

== ENCOUNTER 2021-04-12 18:55 | Observation (INO) | payer MEDICARE ==
--- NOTE | 2021-04-12 20:39 | XRay Report ---
CHEST 1 VIEW 04/12/2021 8:10 PM INDICATION / CLINICAL INFORMATION: missed dialysis. No other pertinent clinical information provided. COMPARISON: None available. FINDINGS: SUPPORT DEVICES: None. HEART / MEDIASTINUM: Normal size of the cardiac silhouette with an ectatic and calcified thoracic aor ta. LUNGS / PLEURA: No significant pulmonary abnormality. No significant pleural effusion. No pneumothora x. ADDITIONAL FINDINGS: No significant additional findings. IMPRESSION: 1. No acute abnormality of the chest. Signer Name: Jigar Adames MD Signed: 04/12/2021 8:34 PM Workstation Name: [id number]
--- NOTE | 2021-04-12 20:48 | Emergency Department Report ---
ED Altered Mental Status HPI - General Stated Complaint: FAILURE TO THRIVE Time Seen by Provider: 04/12/21 19:46 Source: patient, family, EMS Mode of arrival: Stretcher Limitations: Altered Mental Status - History of Present Illness Initial Comments: 80-year-old male with a past medical history of end-stage renal disease on dialysis, history of CVA, and vascular dementia that presents to the hospital "failure to thrive" and no dialysis for the last 2 weeks. Patient had a glucose of 40 in the field and was provided oral glucose with improvement. Patient has not gone to dialysis because he wants to be on hospice care and no longer wants treatment. He also has not been taking his medications for the last 2 weeks. Patient presented with generalized weakness and decreased mental status. I did discuss case with patient's son who is also power of managing attorney. He states that for the past 5 days they have been trying to get the patient into hospice and the [place] doctor suggested the patient come to the hospital. At this time son is agreeable with continuing dialysis if it would help patient's mental status and improve his quality of life. However, he is still desiring hospice care to be arranged - Related Data Home Medications Medication Instructions Recorded Confirmed Last Taken [facility] Vitamin A and D Ointment 800 mg PO DAILY 10/31/20 11/08/20 Unknown Mecobalamin [B12 Active] 1,000 mcg PO QDAY 10/31/20 11/08/20 Unknown Previous Rx's Medication Instructions Recorded Last Taken Type Aspirin 81 mg PO QDAY #30 tablet 11/08/20 Unknown Rx Clopidogrel [Plavix] 75 mg PO QDAY #30 tablet 11/08/20 Unknown Rx Famotidine [Pepcid] 20 mg PO DAILY tablet 11/08/20 Unknown Rx Metoprolol [Lopressor TAB] 25 mg PO DAILY #30 11/08/20 Unknown Rx Simvastatin 40 mg PO QHS #30 tablet 11/08/20 Unknown Rx Allergies Allergy/AdvReac Type Severity Reaction Status Date / Time No Known Allergies Allergy Unverified 08/24/15 12:11 ED Review of Systems ROS: Stated complaint: FAILURE TO THRIVE Other details as noted in HPI Comment: Unobtainable due to pts medical conditions ED Past Medical Hx - Past Medical History Hx CVA: Yes Hx Diabetes: Yes (IDDM) Hx Renal Disease: Yes (HD M, W, F) Additional medical history: TIA, - Social History Smoking Status: Current Some Day Smoker - Medications Home Medications: Home Medications Medication Instructions Recorded Confirmed Last Taken Type [facility] Vitamin A and D Ointment 800 mg PO DAILY 10/31/20 11/08/20 Unknown History Mecobalamin [B12 Active] 1,000 mcg PO QDAY 10/31/20 11/08/20 Unknown History Aspirin 81 mg PO QDAY #30 tablet 11/08/20 Unknown Rx Clopidogrel [Plavix] 75 mg PO QDAY #30 tablet 11/08/20 Unknown Rx Famotidine [Pepcid] 20 mg PO DAILY tablet 11/08/20 Unknown Rx Metoprolol [Lopressor TAB] 25 mg PO DAILY #30 11/08/20 Unknown Rx Simvastatin 40 mg PO QHS #30 tablet 11/08/20 Unknown Rx ED Physical Exam - Other Other exam information: General: No acute distress Head: Atraumatic Eyes: normal appearance ENT: Moist mucous membranes Neck: Normal appearance, no midline tenderness Chest: Clear to auscultation bilaterally CV: Regular rate and rhythm Abdomen: Soft, normal bowel sounds, nontender, nondistended, no rebound or guarding Back: Normal inspection Extremity: Normal inspection, full range of motion Neuro: Alert, minimal speaking, clear stating he is cold. Nods in response to questions, equal handgrip Psych: Appropriate behavior Skin: No rash ED Course - Reevaluation(s) Reevaluation #1: 04/12/21 22:15 Patient is current vital signs 139/56, satting 99% on room air, heart rate 72. Awaiting temperature assessment by RN 04/12/21 22:21 son provided update regarding pt status,uremia, and admission for dialysis - Consultations Consultation #1: 04/12/21 22:[address] Myrick habilitative interventionist recommends IV fluids at 42 mL/h and will likely arrange for dialysis tomorrow - Lab Data Result diagrams: 04/12/21 20:31 04/12/21 20:31 Lab Results 04/12/21 04/12/21 04/12/21 Range/Units 19:27 20:31 20:31 WBC 9.7 (4.5-11.0) K/mm3 RBC 4.36 (3.65-5.03) M/mm3 Hgb 12.3 (11.8-15.2) gm/dl Hct 39.4 (35.5-45.6) % MCV 91 (84-94) fl MCH 28 (28-32) pg MCHC 31 L (32-34) % RDW 13.7 (13.2-15.2) % Plt Count 211 (140-440) K/mm3 Lymph % (Auto) 7.1 L (13.4-35.0) % Thomas % (Auto) 5.2 (0.0-7.3) % Eos % (Auto) 0.2 (0.0-4.3) % Baso % (Auto) 0.4 (0.0-1.8) % Lymph # (Auto) 0.7 L (1.2-5.4) K/mm3 Thomas # (Auto) 0.5 (0.0-0.8) K/mm3 Eos # (Auto) 0.0 (0.0-0.4) K/mm3 Baso # (Auto) 0.0 (0.0-0.1) K/mm3 Seg Neutrophils % 87.1 H (40.0-70.0) % Seg Neutrophils # 8.5 H (1.8-7.7) K/mm3 Sodium 142 (137-145) mmol/L Potassium 5.6 H (3.6-5.0) mmol/L Chloride 86.8 L (98-107) mmol/L Carbon Dioxide 23 (22-30) mmol/L Anion Gap 38 mmol/L BUN 171 H (9-20) mg/dL Creatinine 33.3 H (0.8-1.3) mg/dL Estimated GFR 2 ml/min BUN/Creatinine Ratio 5 % Glucose 110 H (75-100) mg/dL POC Glucose 77 (70-105) mg/dL Calcium 10.4 H (8.4-10.2) mg/dL Total Bilirubin 0.40 (0.1-1.2) mg/dL AST < 5 L (5-40) units/L ALT 6 L (7-56) units/L Alkaline Phosphatase 247 H (35-129) units/L Ammonia (25-60) umol/L Total Protein 6.5 (6.3-8.2) g/dL Albumin 3.6 L (3.9-5) g/dL Albumin/Globulin Ratio 1.2 % 04/12/21 Range/Units 20:31 WBC (4.5-11.0) K/mm3 RBC (3.65-5.03) M/mm3 Hgb (11.8-15.2) gm/dl Hct (35.5-45.6) % MCV (84-94) fl MCH (28-32) pg MCHC (32-34) % RDW (13.2-15.2) % Plt Count (140-440) K/mm3 Lymph % (Auto) (13.4-35.0) % Thomas % (Auto) (0.0-7.3) % Eos % (Auto) (0.0-4.3) % Baso % (Auto) (0.0-1.8) % Lymph # (Auto) (1.2-5.4) K/mm3 Thomas # (Auto) (0.0-0.8) K/mm3 Eos # (Auto) (0.0-0.4) K/mm3 Baso # (Auto) (0.0-0.1) K/mm3 Seg Neutrophils % (40.0-70.0) % Seg Neutrophils # (1.8-7.7) K/mm3 Sodium (137-145) mmol/L Potassium (3.6-5.0) mmol/L Chloride (98-107) mmol/L Carbon Dioxide (22-30) mmol/L Anion Gap mmol/L BUN (9-20) mg/dL Creatinine (0.8-1.3) mg/dL Estimated GFR ml/min BUN/Creatinine Ratio % Glucose (75-100) mg/dL POC Glucose (70-105) mg/dL Calcium (8.4-10.2) mg/dL Total Bilirubin (0.1-1.2) mg/dL AST (5-40) units/L ALT (7-56) units/L Alkaline Phosphatase (35-129) units/L Ammonia 16.0 L (25-60) umol/L Total Protein (6.3-8.2) g/dL Albumin (3.9-5) g/dL Albumin/Globulin Ratio % - EKG Data -: EKG Interpreted by Vt EKG shows normal: sinus rhythm, ST-T waves (no stemi, peak t waves ) Rate: normal (75) - Radiology Data Radiology results: report reviewed CHEST 1 VIEW 04/12/2021 8:10 PM INDICATION / CLINICAL INFORMATION: missed dialysis. No other pertinent clinical information provided. COMPARISON: None available. FINDINGS: SUPPORT DEVICES: None. HEART / MEDIASTINUM: Normal size of the cardiac silhouette with an ectatic and calcified thoracic aorta. LUNGS / PLEURA: No significant pulmonary abnormality. No significant pleural effusion. No pneumothorax. ADDITIONAL FINDINGS: No significant additional findings. IMPRESSION: 1. No acute abnormality of the chest. - Medical Decision Making 80-year-old male with a past medical history of end-stage renal disease has refused dialysis and treatment for the last 2 weeks. [facility] has been [facility] to [facility], patient's condition has worsened. He is agreeable to reinitiating dialysis at this time until alternative arrangements can be made. Acute change in mental status likely secondary to uremia. Patient also has hyperkalemia with EKG findings of peaked T waves. Meds ordered. Patient did have hypoglycemia which responded to oral glucose provided by EMS. D5 NS IV fluids ordered. Case management consult ordered to assist with home hospice care arrangements. Patient to be admitted t o hospitalist service Critical Care Time: Yes Critical care attestation.: If time is entered above; I have spent that time in minutes in the direct care of this critically ill patient, excluding procedure time. Critical Care Time: 35 Minutes of critical care time excluding procedures were used in the care of the patient. I came immediately to the bedside upon patient's arrival. I obtained history from EMS at the bedside. I discussed treatment plan with the nursing team members. I reviewed electronic record. I spoke with family to obtain medical history. Patient required multiple interventions and reassessments. Spoke with hospitalist and consultants for collaborative care ED Disposition Clinical Impression: ESRD (end stage renal disease) on dialysis, Dialysis patient, noncompliant, Acute encephalopathy, Uremia, Hypoglycemia Disposition: ADMITTED INPATIENT Is pt being admited?: Yes Condition: Stable Time of Disposition: 22:25
[2021-04-12 21:01] LABS: Basophils % (Auto) 0.4 % (0.0-1.8); Eosinophils % (Auto) 0.2 % (0.0-4.3); Hematocrit 39.4 % (35.5-45.6); Hemoglobin 12.3 gm/dl (11.8-15.2); Lymphocytes # (Auto) 0.7 K/mm3 (1.2-5.4); Lymphocytes % (Auto) 7.1 % (13.4-35.0); Mean Corpuscular HGB Conc 31 % (32-34); Mean Corpuscular Volume 91 fl (84-94); Monocytes # (Auto) 0.5 K/mm3 (0.0-0.8); Monocytes % (Auto) 5.2 % (0.0-7.3); Platelet Count 211 K/mm3 (140-440); Red Blood Count 4.36 M/mm3 (3.65-5.03); Red Cell Distribution Width 13.7 % (13.2-15.2)
[2021-04-12 21:17] LABS: Alanine Aminotransferase 6 units/L (7-56); Albumin 3.6 g/dL (3.9-5); Calcium 10.4 mg/dL (8.4-10.2); Hemolysis Index 22
[2021-04-12 21:34] LABS: BUN/Creatinine Ratio 5; Blood Urea Nitrogen 171 mg/dL (9-20)
[2021-04-12] MEDS ORDERED: CALCIUM GLUCONATE 1,000 MG in SODIUM CHLORIDE 0.9% 100 ML IV ONE (22:04)
[2021-04-12] MEDS ORDERED: INSULIN REGULAR, HUMAN 100 UNITS/1 ML IV ONE (22:05)
[2021-04-12] MEDS ORDERED: SODIUM BICARB 8.4% 50 MEQ/50 ML SYRINGE IV ONE (22:05)
[2021-04-12] MEDS ORDERED: DEXTROSE 50% IN WATER (25GM) 50 ML VIAL IV ONE (22:05)
[2021-04-12] MEDS ORDERED: ALBUTEROL 2.5 MG/3 ML NEBU IH ONE (22:05)
[2021-04-12] MEDS ORDERED: SODIUM CHLORIDE 0.9% 1000 ML 1,000 ML IV ONE (22:11)
[2021-04-12] MEDS ORDERED: SODIUM POLYSTYRENE 15 GM/60 ML ORAL LIQD PO ONE (22:12)
[2021-04-12] MEDS ORDERED: CALCIUM CHLORIDE 1,000 MG in SODIUM CHLORIDE 0.9% 100 ML IV ONE (23:03)
[2021-04-12] MEDS ORDERED: MORPHINE 2 MG/1 ML INJ IV PRN (23:18)
[2021-04-12] MEDS ORDERED: MORPHINE 4 MG/1 ML INJ IV PRN (23:18)
[2021-04-12] MEDS ORDERED: MAGNESIUM HYDROXIDE (MOM) ORAL LIQD UDC PO PRN (23:18)
[2021-04-12] MEDS ORDERED: ACETAMINOPHEN 325 MG TAB PO PRN (23:18)
[2021-04-12] MEDS ORDERED: DEXTROSE 50% IN WATER (25GM) 50 ML SYRINGE IV PRN (23:18)
[2021-04-12] MEDS ORDERED: ONDANSETRON 4 MG/2 ML INJ IV PRN (23:18)
--- NOTE | 2021-04-12 23:35 | History and Physical Report ---
History of Present Illness Date of examination: 04/12/21 Date of admission: 04/12/2021 Chief complaint: Failure to Thrive History of present illness: 80-year-old male with known history of end-stage renal disease on dialysis, history of CVA, dementia presents to the emergency room today with failure to thrive and inability to go for dialysis for about 2 weeks. Blood glucose on the field was said to be in the 40s patient was given some oral glucose with improvement. Patient has been having generalized weakness and has been having changes in mental status over the past 2 weeks. He has not been quite compliant with his medications and dialysis she wants as he wants to be on hospice care. Son has been trying to get patient into hospice care but was encouraged by the [place] where patient follows up to report to the hospital for possible admission. Son has the power of civil litigation attorney. Work-up in the emergency room today reveals BUN of 171 and creatinine of 33.3. Potassium was 5.6. Senior Integration Architect has been consulted for evaluation. Patient is being admitted with encephalopathy, hypoglycemia, end-stage renal disease needing dialysis. Past History Past Medical History: diabetes, dialysis, ESRD, stroke Past Surgical History: No surgical history Social history: smoking (Current daily smoker) Family history: no significant family history Medications and Allergies Allergies Allergy/AdvReac Type Severity Reaction Status Date / Time No Known Allergies Allergy Unverified 08/24/15 12:11 Home Medications Medication Instructions Recorded Confirmed Last Taken Type [facility] Vitamin A and D Ointment 800 mg PO DAILY 10/31/20 11/08/20 Unknown History Mecobalamin [B12 Active] 1,000 mcg PO QDAY 10/31/20 11/08/20 Unknown History Aspirin 81 mg PO QDAY #30 tablet 11/08/20 Unknown Rx Clopidogrel [Plavix] 75 mg PO QDAY #30 tablet 11/08/20 Unknown Rx Famotidine [Pepcid] 20 mg PO DAILY tablet 11/08/20 Unknown Rx Metoprolol [Lopressor TAB] 25 mg PO DAILY #30 11/08/20 Unknown Rx Simvastatin 40 mg PO QHS #30 tablet 11/08/20 Unknown Rx Active Meds: Active Medications Acetaminophen (Acetaminophen 325 Mg Tab) 650 mg PO Q4H PRN PRN Reason: Pain MILD(1-3)/Fever >100.5/MUÑIZ Dextrose (Dextrose 50% In Water (25gm) 50 Ml Syringe) 50 ml IV Q30MIN PRN; Protocol PRN Reason: Hypoglycemia Dextrose (Dextrose 50% In Water (25gm) 50 Ml Syringe) 50 ml IV Q30MIN PRN; Protocol PRN Reason: Hypoglycemia Dextrose/Sodium Chloride (D5ns) 1,000 mls @ 42 mls/hr IV DIRECT GO Insulin Human Regular (Insulin Regular, Human 100 Units/1 Ml) 0 units SUB-Q ACHS GO; Protocol Magnesium Hydroxide (Magnesium Hydroxide (Mom) Oral Liqd Udc) 30 ml PO Q4H PRN PRN Reason: Constipation Morphine Sulfate (Morphine 2 Mg/1 Ml Inj) 2 mg IV Q4H PRN PRN Reason: Pain, Moderate (4-6) Morphine Sulfate (Morphine 4 Mg/1 Ml Inj) 4 mg IV Q4H PRN PRN Reason: Pain , Severe (7-10) Ondansetron HCl (Ondansetron 4 Mg/2 Ml Inj) 4 mg IV Q8H PRN PRN Reason: Nausea And Vomiting Sodium Chloride (Sodium Chloride 0.9% 10 Ml Flush Syringe) 10 ml IV BID GO Sodium Chloride (Sodium Chloride 0.9% 10 Ml Flush Syringe) 10 ml IV PRN PRN PRN Reason: LINE FLUSH Review of Systems Constitutional: no fever, no chills Ears, nose, mouth and throat: no nasal congestion, no sore throat Cardiovascular: no chest pain, no palpitations Respiratory: no cough, no shortness of breath Gastrointestinal: no abdominal pain, no nausea, no vomiting, no diarrhea Genitourinary Male: no dysuria, no hematuria, no flank pain, no nocturia Musculoskeletal: no neck pain, no low back pain Integumentary: no rash, no pruritis Neurological: no headaches, no confusion Psychiatric: no anxiety, no depression Endocrine: no polyphagia, no polydipsia, no polyuria, no nocturia Exam - Constitutional Vitals: Temp Pulse Resp BP Pulse Ox 97.5 F L 92 H 22 139/56 100 04/12/21 21:50 04/12/21 22:49 04/12/21 22:49 04/12/21 22:16 04/12/21 22:16 General appearance: Present: no acute distress, well-nourished - EENT Eyes: Present: PERRL, EOM intact. Absent: scleral icterus ENT: hearing intact, clear oral mucosa, dentition normal - Neck Neck: Present: supple, normal ROM - Respiratory Respiratory effort: normal Respiratory: bilateral: CTA - Cardiovascular Rhythm: regular Heart Sounds: Present: S1 & S2. Absent: gallop, systolic murmur, diastolic murmur, rub, click - Extremities Extremities: no ischemia, pulses intact, pulses symmetrical, No edema, normal temperature, normal color, Full ROM Peripheral Pulses: within normal limits - Abdominal General gastrointestinal: Present: soft, non-tender, non-distended, normal bowel sounds. Absent: mass - Integumentary Integumentary: Present: clear, warm, dry, normal turgor. Absent: rash - Musculoskeletal Musculoskeletal: strength equal bilaterally - Psychiatric Psychiatric: appropriate mood/affect, intact judgment & insight, memory intact, cooperative - Neurologic Neurologic: CNII-XII intact, no focal deficits, moves all extremities Results - Labs CBC & Chem 7: 04/12/21 20:31 04/13/21 06:01 Labs: Abnormal lab results 04/12/21 04/12/21 04/12/21 Range/Units 20:31 20:31 20:31 MCHC 31 L (32-34) % Lymph % (Auto) 7.1 L (13.4-35.0) % Lymph # (Auto) 0.7 L (1.2-5.4) K/mm3 Seg Neutrophils % 87.1 H (40.0-70.0) % Seg Neutrophils # 8.5 H (1.8-7.7) K/mm3 Potassium 5.6 H (3.6-5.0) mmol/L Chloride 86.8 L (98-107) mmol/L BUN 171 H (9-20) mg/dL Creatinine 33.3 H (0.8-1.3) mg/dL Glucose 110 H (75-100) mg/dL Calcium 10.4 H (8.4-10.2) mg/dL AST < 5 L (5-40) units/L ALT 6 L (7-56) units/L Alkaline Phosphatase 247 H (35-129) units/L Ammonia 16.0 L (25-60) umol/L Albumin 3.6 L (3.9-5) g/dL Assessment and Plan - Patient Problems (1) Acute encephalopathy Current Visit: Yes Status: Acute Plan to address problem: Patient has a baseline history of dementia. Will continue to monitor mental status. (2) ESRD (end stage renal disease) on dialysis Current Visit: Yes Status: Acute Plan to address problem: Senior Integration Architect consulted for possible dialysis. (3) Hypoglycemia Current Visit: Yes Status: Acute Plan to address problem: Possibly due to poor oral intake. Will monitor Accu-Cheks. (4) Hyperlipidemia Current Visit: No Status: Chronic Qualifiers: Hyperlipidemia type: mixed hyperlipidemia Qualified Code(s): E78.2 - Mixed hyperlipidemia Plan to address problem: Will continue routine home medications and monitor lipid profile. (5) Hypertension Current Visit: No Status: Chronic Qualifiers: Hypertension type: primary hypertension Qualified Code(s): I10 - Essential (primary) hypertension Plan to address problem: We will resume routine home medications and monitor vital signs closely. (6) DVT prophylaxis Current Visit: No Status: Acute Plan to address problem: Patient placed on subcutaneous heparin. (7) Full code status Current Visit: Yes Status: Acute Plan to address problem: Patient is full code.
[2021-04-13] MEDS ORDERED: SODIUM CHLORIDE 0.9% 100 ML IV PRN (00:44)
[2021-04-13] MEDS ORDERED: ALBUMIN HUMAN 25% (25 GM/100 ML) INJ IV PRN (00:44)
[2021-04-13] MEDS: D5W/0.9% NACL 1,000 ML IV SCH ×2 (00:49→22:08)
[2021-04-13 01:58] LABS: Hepatitis B Surface Antigen Non-Reactive (Negative); Hepatitis C Virus Antibody Non-Reactive (NonReactive)
[2021-04-13 06:35] LABS: Calcium 10.1 mg/dL (8.4-10.2)
[2021-04-13] MEDS: INSULIN REGULAR, HUMAN 100 UNITS/1 ML SUB-Q SCH ×4 (07:30→22:04)
--- NOTE | 2021-04-13 08:17 | Consultation ---
History of Present Illness - Reason for Consult Consult date: 04/13/21 end stage renal disease - History of Present Illness Mr. Santos is a 80-year-old male with ESRD, history of CVA, and vascular dementia who presented to the hospital "failure to thrive" Patient reportedly has not dialyzed in 2 weeks as he no longer wanted to receive dialysis and wanted hospice care. Per son, over the past 5 days, family has been trying to get the patient into hospice. [facility] Past History Past Medical History: diabetes, dialysis, ESRD, stroke Past Surgical History: No surgical history Social history: smoking (Current daily smoker) Family history: no significant family history Medications and Allergies Allergies Allergy/AdvReac Type Severity Reaction Status Date / Time No Known Allergies Allergy Unverified 08/24/15 12:11 Home Medications Medication Instructions Recorded Confirmed Last Taken Type [facility] Vitamin A and D Ointment 800 mg PO DAILY 10/31/20 11/08/20 Unknown History Mecobalamin [B12 Active] 1,000 mcg PO QDAY 10/31/20 11/08/20 Unknown History Aspirin 81 mg PO QDAY #30 tablet 11/08/20 Unknown Rx Clopidogrel [Plavix] 75 mg PO QDAY #30 tablet 11/08/20 Unknown Rx Famotidine [Pepcid] 20 mg PO DAILY tablet 11/08/20 Unknown Rx Metoprolol [Lopressor TAB] 25 mg PO DAILY #30 11/08/20 Unknown Rx Simvastatin 40 mg PO QHS #30 tablet 11/08/20 Unknown Rx Active Meds: Active Medications Acetaminophen (Acetaminophen 325 Mg Tab) 650 mg PO Q4H PRN PRN Reason: Pain MILD(1-3)/Fever >100.5/MUÑIZ Albumin Human (Albumin Human 25% (25 Gm/100 Ml) Inj) 25 gm IV LESLIE PRN PRN Reason: Hypotension Dextrose (Dextrose 50% In Water (25gm) 50 Ml Syringe) 50 ml IV Q30MIN PRN; Protocol PRN Reason: Hypoglycemia Dextrose (Dextrose 50% In Water (25gm) 50 Ml Syringe) 50 ml IV Q30MIN PRN; Protocol PRN Reason: Hypoglycemia Epoetin Abhijeet-epbx (Epoetin Abhijeet-Epbx 10,000 Unit/1 Ml Vial) 10,000 unit IV LESLIE PRN PRN Reason: hemodialysis Dextrose/Sodium Chloride (D5ns) 1,000 mls @ 42 mls/hr IV DIRECT GO Last Admin: 04/13/21 00:49 Dose: 42 mls/hr Sodium Chloride (Nacl 0.9%) 100 mls @ 999 mls/hr IV LESLIE PRN PRN Reason: Hypotension Insulin Human Regular (Insulin Regular, Human 100 Units/1 Ml) 0 units SUB-Q ACHS GO; Protocol Morphine Sulfate (Morphine 2 Mg/1 Ml Inj) 2 mg IV Q4H PRN PRN Reason: Pain, Moderate (4-6) Morphine Sulfate (Morphine 4 Mg/1 Ml Inj) 4 mg IV Q4H PRN PRN Reason: Pain , Severe (7-10) Ondansetron HCl (Ondansetron 4 Mg/2 Ml Inj) 4 mg IV Q8H PRN PRN Reason: Nausea And Vomiting Sodium Chloride (Sodium Chloride 0.9% 10 Ml Flush Syringe) 10 ml IV BID GO Sodium Chloride (Sodium Chloride 0.9% 10 Ml Flush Syringe) 10 ml IV PRN PRN PRN Reason: LINE FLUSH Review of Systems ROS unobtainable: due to mental status Exam - Vital Signs Vital signs: Vital Signs Temp Pulse Resp BP Pulse Ox 97.5 F L 73 26 H 139/56 99 04/12/21 21:50 04/12/21 21:50 04/12/21 21:50 04/12/21 21:50 04/12/21 21:50 - General Appearance General appearance: well-developed, frail EENT: ATNC Respiratory: Clear to Ascultation Heart: regular, S1S2 Gastrointestinal: Present: normal. Absent: tenderness, distended Integumentary: warm and dry Psychiatric: cooperative Results - Lab Results 04/12/21 20:31 04/13/21 06:01 Most recent lab results Calcium 10.1 mg/dL (8.4-10.2) 04/13/21 06:01 Assessment and Plan Impression: * End stage renal disease on hemodialysis * Uremia * Metabolic acidosis * Hx of CVA * Vascular dementia Plan: * Patient previously on hospice. Resume hemodialysis per family request. HD today * Will plan for HD again tomorrow * No UF as as patient with poor po intake * Epogen TIW prn * Dose medications for renal function
--- NOTE | 2021-04-13 09:27 | Progress Note ---
Assessment and Plan Assessment and plan: 80-year-old male with history of ESRD, CVA and vascular dementia presents through the emergency department after missed hemodialysis x2 weeks. Patient reportedly no longer wants to receive hemodialysis and wants hospice care. ESRD Uremia Metabolic acidosis History of CVA Vascular dementia 04/13/2021. We will discuss with the family plans/wishes for hospice care. Patient reportedly does not want to receive further hemodialysis. I will discuss with case management. History Interval history: No new issues overnight Hospitalist Physical - Constitutional Vitals: Temp Pulse Resp BP Pulse Ox 97.5 F L 90 22 105/51 97 04/12/21 21:50 04/13/21 07:01 04/12/21 22:49 04/13/21 07:01 04/13/21 07:01 General appearance: Present: no acute distress, well-nourished - EENT Eyes: Present: PERRL, EOM intact ENT: hearing intact, clear oral mucosa, dentition normal - Neck Neck: Present: supple, normal ROM - Respiratory Respiratory effort: normal Respiratory: bilateral: CTA - Cardiovascular Rhythm: regular Heart Sounds: Present: S1 & S2. Absent: gallop, rub - Extremities Extremities: no ischemia, No edema, Full ROM - Abdominal General gastrointestinal: soft, non-tender, non-distended, normal bowel sounds - Integumentary Integumentary: Present: clear, warm, dry - Neurologic Neurologic: CNII-XII intact, moves all extremities Results - Labs CBC & Chem 7: 04/12/21 20:31 04/13/21 06:01 Labs: Laboratory Last Values WBC 9.7 K/mm3 (4.5-11.0) 04/12/21 20:31 RBC 4.36 M/mm3 (3.65-5.03) 04/12/21 20:31 Hgb 12.3 gm/dl (11.8-15.2) 04/12/21 20: Hct 39.4 % (35.5-45.6) 04/12/21 20:31 MCV 91 fl (84-94) 04/12/21 20:31 MCH 28 pg (28-32) 04/12/21 20: MCHC 31 % (32-34) L 04/12/21 20: RDW 13.7 % (13.2-15.2) 04/12/21 20: Plt Count 211 K/mm3 (140-440) 04/12/21 20: Lymph % (Auto) 7.1 % (13.4-35.0) L 04/12/21 20: [place] % (Auto) 5.2 % (0.0-7.3) 04/12/21 20: Eos % (Auto) 0.2 % (0.0-4.3) 04/12/21: Baso % (Auto) 0.4 % (0.0-1.8) 04/12/21 20: Lymph # (Auto) 0.7 K/mm3 (1.2-5.4) L 04/12/21: [place] # (Auto) 0.5 K/mm3 (0.0-0.8) 04/12/21: Eos # (Auto) 0.0 K/mm3 (0.0-0.4) 04/12/21: Baso # (Auto) 0.0 K/mm3 (0.0-0.1) 04/12/21 20: Seg Neutrophils % 87.1 % (40.0-70.0) H 04/12/21: Seg Neutrophils # 8.5 K/mm3 (1.8-7.7) H 04/12/21 20: Sodium 141 mmol/L (137-145) 04/13/21 06:01 Potassium 4.6 mmol/L (3.6-5.0) 04/13/21 06:01 Chloride 87.9 mmol/L (98-107) L 04/13/21 06:01 Carbon Dioxide 24 mmol/L (22-30) 04/13/21 06:01 Anion Gap 34 mmol/L 04/13/21 06:01 BUN 169 mg/dL (9-20) H 04/13/21 06:01 Creatinine 32.2 mg/dL (0.8-1.3) H 04/13/21 06:01 Estimated GFR 2 ml/min 04/13/21 06:01 BUN/Creatinine Ratio 5 % 04/13/21 06:01 Glucose 188 mg/dL (75-100) H 04/13/21 06:01 POC Glucose 163 mg/dL (70-105) H 04/13/21 09:09 Calcium 10.1 mg/dL (8.4-10.2) 04/13/21 06:01 Total Bilirubin 0.40 mg/dL (0.1-1.2) 04/12/21 20:31 AST < 5 units/L (5-40) L 04/12/21 20:31 ALT 6 units/L (7-56) L 04/12/21 20:31 Alkaline Phosphatase 247 units/L (35-129) H 04/12/21 20:31 Ammonia 16.0 umol/L (25-60) L 04/12/21 20:31 Total Protein 6.5 g/dL (6.3-8.2) 04/12/21 20:31 Albumin 3.6 g/dL (3.9-5) L 04/12/21 20:31 Albumin/Globulin Ratio 1.2 % 04/12/21 20:31 Hepatitis A IgM Ab Non-reactive (NonReactive) 04/13/21 01:18 Hep Bs Antigen Non-reactive (Negative) 04/13/21 01:18 Hep B Core IgM Ab Non-reactive (NonReactive) 04/13/21 01:18 Hepatitis C Antibody Non-reactive (NonReactive) 04/13/21 01:18 Active Medications - Current Medications Current Medications: Generic Name Dose Route Start Last Admin Trade Name Freq PRN Reason Stop Dose Admin Acetaminophen 650 mg 04/12/21 23:18 Acetaminophen 325 Mg Tab PO Q4H PRN Pain MILD(1-3)/Fever >100.5/MUÑIZ Albumin Human 25 gm 04/13/21 00:44 Albumin Human 25% (25 Gm/100 Ml) Inj IV LESLIE PRN Hypotension Dextrose 50 ml 04/12/21 23:18 Dextrose 50% In Water (25gm) 50 Ml Syringe IV Q30MIN PRN Hypoglycemia Protocol Dextrose 50 ml 04/12/21 23:18 Dextrose 50% In Water (25gm) 50 Ml Syringe IV Q30MIN PRN Hypoglycemia Protocol Epoetin Abhijeet-epbx 10,000 unit 04/13/21 00:44 Epoetin Abhijeet-Epbx 10,000 Unit/1 Ml Vial IV LESLIE PRN hemodialysis Dextrose/Sodium Chloride 1,000 mls @ 42 mls/hr 04/12/21 23:00 04/13/21 00:49 D5ns IV 42 mls/hr DIRECT GO Administration Sodium Chloride 100 mls @ 999 mls/hr 04/13/21 00:44 Nacl 0.9% IV LESLIE PRN Hypotension Insulin Human Regular 0 units 04/13/21 07:30 Insulin Regular, Human 100 Units/1 Ml SUB-Q ACHS [facility] Protocol Morphine Sulfate 2 mg 04/12/21 23:18 Morphine 2 Mg/1 Ml Inj IV Q4H PRN Pain, Moderate (4-6) Morphine Sulfate 4 mg 04/12/21 23:18 Morphine 4 Mg/1 Ml Inj IV Q4H PRN Pain , Severe (7-10) Ondansetron HCl 4 mg 04/12/21 23:18 Ondansetron 4 Mg/2 Ml Inj IV Q8H PRN Nausea And Vomiting Sodium Chloride 10 ml 04/13/21 10:00 Sodium Chloride 0.9% 10 Ml Flush Syringe IV BID GO Sodium Chloride 10 ml 04/12/21 23:18 Sodium Chloride 0.9% 10 Ml Flush Syringe IV PRN PRN LINE FLUSH
[2021-04-13] MEDS: EPOETIN ALFA-EPBX 10,000 UNIT/1 ML VIAL IV PRN (13:52)
[2021-04-14] MEDS ORDERED: SODIUM CHLORIDE 0.9% 100 ML IV PRN (05:19)
[2021-04-14] MEDS: INSULIN REGULAR, HUMAN 100 UNITS/1 ML SUB-Q SCH ×3 (07:56→18:03)
[2021-04-14] MEDS: EPOETIN ALFA-EPBX 10,000 UNIT/1 ML VIAL IV PRN (11:28)
--- NOTE | 2021-04-14 11:50 | Progress Note ---
Assessment and Plan Assessment and plan: 80-year-old male with history of ESRD, CVA and vascular dementia presents through the emergency department after missed hemodialysis x2 weeks. Patient reportedly no longer wants to receive hemodialysis and wants hospice care. ESRD Uremia Metabolic acidosis History of CVA Vascular dementia 04/13/2021. We will discuss with the family plans/wishes for hospice care. Patient reportedly does not want to receive further hemodialysis. I will discuss with case management. 04/14/2021. Patient arranged for [facility]. Family requested patient to receive dialysis treatment today then discharge home with hospice on 04/15/2021 History Interval history: No new issues overnight Hospitalist Physical - Constitutional Vitals: Temp Pulse Resp BP Pulse Ox 98.4 F 93 H 18 112/49 98 04/14/21 07:42 04/14/21 08:16 04/14/21 07:42 04/14/21 07:42 04/14/21 08:16 General appearance: Present: no acute distress, well-nourished - EENT Eyes: Present: PERRL, EOM intact ENT: hearing intact, clear oral mucosa, dentition normal - Neck Neck: Present: supple, normal ROM - Respiratory Respiratory effort: normal Respiratory: bilateral: CTA - Cardiovascular Rhythm: regular Heart Sounds: Present: S1 & S2. Absent: gallop, rub - Extremities Extremities: no ischemia, No edema, Full ROM - Abdominal General gastrointestinal: soft, non-tender, non-distended, normal bowel sounds - Integumentary Integumentary: Present: clear, warm, dry - Neurologic Neurologic: CNII-XII intact, moves all extremities Results - Labs CBC & Chem 7: 04/12/21 20:31 04/13/21 06:01 Labs: Laboratory Last Values WBC 9.7 K/mm3 (4.5-11.0) 04/12/21 20:31 RBC 4.36 M/mm3 (3.65-5.03) 04/12/21 20:31 Hgb 12.3 gm/dl (11.8-15.2) 04/12/21 20:31 Hct 39.4 % (35.5-45.6) 04/12/21 20:31 MCV 91 fl (84-94) 04/12/21 20:31 MCH 28 pg (28-32) 04/12/21: MCHC 31 % (32-34) L 04/12/21: RDW 13.7 % (13.2-15.2) 04/12/21: Plt Count 211 K/mm3 (140-440) 04/12/21 20: Lymph % (Auto) 7.1 % (13.4-35.0) L 04/12/21: [place] % (Auto) 5.2 % (0.0-7.3) 04/12/21: Eos % (Auto) 0.2 % (0.0-4.3) 04/12/21: Baso % (Auto) 0.4 % (0.0-1.8) 04/12/21 Lymph # (Auto) 0.7 K/mm3 (1.2-5.4) L 04/12/21: [place] # (Auto) 0.5 K/mm3 (0.0-0.8) 04/12/21 Eos # (Auto) 0.0 K/mm3 (0.0-0.4) 04/12/21 Baso # (Auto) 0.0 K/mm3 (0.0-0.1) 04/12/21: Seg Neutrophils % 87.1 % (40.0-70.0) H 04/12/21: Seg Neutrophils # 8.5 K/mm3 (1.8-7.7) H 04/12/21: Sodium 141 mmol/L (137-145) 04/13/21 06:01 Potassium 4.6 mmol/L (3.6-5.0) 04/13/21 06:01 Chloride 87.9 mmol/L (98-107) L 04/13/21 06:01 Carbon Dioxide 24 mmol/L (22-30) 04/13/21 06:01 Anion Gap 34 mmol/L 04/13/21 06:01 BUN 169 mg/dL (9-20) H 04/13/21 06:01 Creatinine 32.2 mg/dL (0.8-1.3) H 04/13/21 06:01 Estimated GFR 2 ml/min 04/13/21 06:01 BUN/Creatinine Ratio 5 % 04/13/21 06:01 Glucose 188 mg/dL (75-100) H 04/13/21 06:01 POC Glucose 124 mg/dL (70-105) H 04/14/21 07:43 Calcium 10.1 mg/dL (8.4-10.2) 04/13/21 06:01 Total Bilirubin 0.40 mg/dL (0.1-1.2) 04/12/21 20:31 AST < 5 units/L (5-40) L 04/12/21 20:31 ALT 6 units/L (7-56) L 04/12/21 20:31 Alkaline Phosphatase 247 units/L (35-129) H 04/12/21 20:31 Ammonia 16.0 umol/L (25-60) L 04/12/21 20:31 Total Protein 6.5 g/dL (6.3-8.2) 04/12/21 20:31 Albumin 3.6 g/dL (3.9-5) L 04/12/21 20:31 Albumin/Globulin Ratio 1.2 % 04/12/21 20:31 Hepatitis A IgM Ab Non-reactive (NonReactive) 04/13/21 01:18 Hep Bs Antigen Non-reactive (Negative) 04/13/21 01:18 Hep B Core IgM Ab Non-reactive (NonReactive) 04/13/21 01:18 Hepatitis C Antibody Non-reactive (NonReactive) 04/13/21 01:18 Morrison/IV: Voiding Method Incontinent Active Medications - Current Medications Current Medications: Generic Name Dose Route Start Last Admin Trade Name Freq PRN Reason Stop Dose Admin Acetaminophen 650 mg 04/12/21 23:18 Acetaminophen 325 Mg Tab PO Q4H PRN Pain MILD(1-3)/Fever >100.5/MUÑIZ Albumin Human 25 gm 04/13/21 00:44 Albumin Human 25% (25 Gm/100 Ml) Inj IV LESLIE PRN Hypotension Dextrose 50 ml 04/12/21 23:18 Dextrose 50% In Water (25gm) 50 Ml Syringe IV Q30MIN PRN Hypoglycemia Protocol Dextrose 50 ml 04/12/21 23:18 Dextrose 50% In Water (25gm) 50 Ml Syringe IV Q30MIN PRN Hypoglycemia Protocol Epoetin Abhijeet-epbx 10,000 unit 04/13/21 00:44 04/14/21 11:28 Epoetin Abhijeet-Epbx 10,000 Unit/1 Ml Vial IV 10,000 unit LESLIE PRN Administration hemodialysis Dextrose/Sodium Chloride 1,000 mls @ 42 mls/hr 04/12/21 23:00 04/13/21 22:08 D5ns IV 42 mls/hr DIRECT GO Administration Sodium Chloride 100 mls @ 999 mls/hr 04/13/21 00:44 Nacl 0.9% IV LESLIE PRN Hypotension Sodium Chloride 100 mls @ 999 mls/hr 04/14/21 05:19 Nacl 0.9% IV LESLIE PRN Hypotension Insulin Human Regular 0 units 04/13/21 07:30 04/13/21 22:04 Insulin Regular, Human 100 Units/1 Ml SUB-Q 1 units ACHS GO Administration Protocol Morphine Sulfate 2 mg 04/12/21 23:18 Morphine 2 Mg/1 Ml Inj IV Q4H PRN Pain, Moderate (4-6) Morphine Sulfate 4 mg 04/12/21 23:18 Morphine 4 Mg/1 Ml Inj IV Q4H PRN Pain , Severe (7-10) Ondansetron HCl 4 mg 04/12/21 23:18 04/14/21 01:57 Ondansetron 4 Mg/2 Ml Inj IV 4 mg Q8H PRN Administration Nausea And Vomiting Sodium Chloride 10 ml 04/13/21 10:00 04/13/21 22:07 Sodium Chloride 0.9% 10 Ml Flush Syringe IV 10 ml BID GO Administration Sodium Chloride 10 ml 04/12/21 23:18 Sodium Chloride 0.9% 10 Ml Flush Syringe IV PRN PRN LINE FLUSH
--- NOTE | 2021-04-14 12:55 | Progress Note ---
Assessment and Plan Impression: * End stage renal disease on hemodialysis * Uremia * Metabolic acidosis * Hx of CVA * Vascular dementia Plan: * AM labs pending * Patient previously on hospice. HD resumed per family request. He is s/p HD yesterday * Hemodialysis today * Maintain TTS schedule for now * UF as tolerated - patient with poor po intake * Epogen TIW prn * Dose medications for renal function Subjective Date of service: 04/14/21 Interval history: No acute events overnight. Objective - Vital Signs Vital signs: Vital Signs - 12hr 04/14/21 04/14/21 04/14/21 03:22 04:00 07:42 Temperature 97.8 F 97.7 F 98.4 F Pulse Rate 92 H 90 93 H Respiratory 16 16 18 Rate Blood Pressure 119/53 112/49 Blood Pressure 116/56 [Left] O2 Sat by Pulse 96 99 96 Oximetry 04/14/21 08:16 Temperature Pulse Rate 93 H Respiratory Rate Blood Pressure Blood Pressure [Left] O2 Sat by Pulse 98 Oximetry - General Appearance General appearance: well-developed, frail EENT: ATNC Neck: no JVD Respiratory: Present: Clear to Ascultation Cardiology: regular, S1S2 Gastrointestinal: normal, no tenderness, no distended Integumentary: no rash, warm and dry Psychiatric: cooperative - Lab 04/12/21 20:31 04/14/21 14:46 Most recent lab results Calcium 10.1 mg/dL (8.4-10.2) 04/13/21 06:01 Medications & Allergies - Medications Allergies/Adverse Reactions: Allergies No Known Allergies Allergy (Unverified 08/24/15 12:11) Home Medications: Home Medications Medication Instructions Recorded Confirmed Last Taken Type [facility] Vitamin A and D Ointment 800 mg PO DAILY 10/31/20 11/08/20 Unknown History Mecobalamin [B12 Active] 1,000 mcg PO QDAY 10/31/20 11/08/20 Unknown History Aspirin 81 mg PO QDAY #30 tablet 11/08/20 Unknown Rx Clopidogrel [Plavix] 75 mg PO QDAY #30 tablet 11/08/20 Unknown Rx Famotidine [Pepcid] 20 mg PO DAILY tablet 11/08/20 Unknown Rx Metoprolol [Lopressor TAB] 25 mg PO DAILY #30 11/08/20 Unknown Rx Simvastatin 40 mg PO QHS #30 tablet 11/08/20 Unknown Rx Active Medications: Generic Name Dose Route Start Last Admin Trade Name Freq PRN Reason Stop Dose Admin Acetaminophen 650 mg 04/12/21 23:18 Acetaminophen 325 Mg Tab PO Q4H PRN Pain MILD(1-3)/Fever >100.5/MUÑIZ Albumin Human 25 gm 04/13/21 00:44 Albumin Human 25% (25 Gm/100 Ml) Inj IV LESLIE PRN Hypotension Dextrose 50 ml 04/12/21 23:18 Dextrose 50% In Water (25gm) 50 Ml Syringe IV Q30MIN PRN Hypoglycemia Protocol Dextrose 50 ml 04/12/21 23:18 Dextrose 50% In Water (25gm) 50 Ml Syringe IV Q30MIN PRN Hypoglycemia Protocol Epoetin Abhijeet-epbx 10,000 unit 04/13/21 00:44 04/14/21 11:28 Epoetin Abhijeet-Epbx 10,000 Unit/1 Ml Vial IV 10,000 unit LESLIE PRN Administration hemodialysis Dextrose/Sodium Chloride 1,000 mls @ 42 mls/hr 04/12/21 23:00 04/13/21 22:08 D5ns IV 42 mls/hr DIRECT GO Administration Sodium Chloride 100 mls @ 999 mls/hr 04/13/21 00:44 Nacl 0.9% IV LESLIE PRN Hypotension Sodium Chloride 100 mls @ 999 mls/hr 04/14/21 05:19 Nacl 0.9% IV LESLIE PRN Hypotension Insulin Human Regular 0 units 04/13/21 07:30 04/13/21 22:04 Insulin Regular, Human 100 Units/1 Ml SUB-Q 1 units ACHS GO Administration Protocol Morphine Sulfate 2 mg 04/12/21 23:18 Morphine 2 Mg/1 Ml Inj IV Q4H PRN Pain, Moderate (4-6) Morphine Sulfate 4 mg 04/12/21 23:18 Morphine 4 Mg/1 Ml Inj IV Q4H PRN Pain , Severe (7-10) Ondansetron HCl 4 mg 04/12/21 23:18 04/14/21 01:57 Ondansetron 4 Mg/2 Ml Inj IV 4 mg Q8H PRN Administration Nausea And Vomiting Sodium Chloride 10 ml 04/13/21 10:00 04/13/21 22:07 Sodium Chloride 0.9% 10 Ml Flush Syringe IV 10 ml BID GO Administration Sodium Chloride 10 ml 04/12/21 23:18 Sodium Chloride 0.9% 10 Ml Flush Syringe IV PRN PRN LINE FLUSH
[2021-04-14] MEDS ORDERED: ALTEPLASE 2 MG INJ ONE (13:22)
[2021-04-14] MEDS ORDERED: DEXTROSE 10% *Hypoglycemia IV PRN (14:06)
[2021-04-14 15:51] LABS: Calcium 9.1 mg/dL (8.4-10.2)
[2021-04-15] MEDS: INSULIN REGULAR, HUMAN 100 UNITS/1 ML SUB-Q SCH (08:00)
--- NOTE | 2021-04-15 08:24 | Discharge Summary ---
Providers - Providers Date of Admission: 04/12/21 23:18 Date of discharge: 04/15/21 Attending physician: ARTI LUNA 04/12/21 22:18 Consult to Physician [CONS] Urgent Comment: Consulting Provider: JOSEFA ODONNELL Physician Instructions: Reason For Exam: esrd, noncompliant, uremia, hyperkalemia 04/12/21 22:22 Consult to Case Management [CONS] Urgent Services Needed at Discharge: [employer] Notified:: n Additional Physician Instructions: son is in the process of trying to arrange for [facility]. he is requesting additonal assistance. Primary care physician: RANGE MECHANIC Hospitalization Reason for admission: missed HD Condition: Stable Hospital course: 80-year-old male with history of ESRD, CVA and vascular dementia presents through the emergency department after missed hemodialysis x2 weeks. Patient reportedly no longer wanted to receive hemodialysis and wanted hospice care. Patient was admitted with diagnosis of ESRD, uremia, metabolic acidosis, history of CVA and vascular dementia. Hospital course: 04/13/2021. We will discuss with the family plans/wishes for hospice care. Patient reportedly does not want to receive further hemodialysis. I will discuss with case management. 04/14/2021. Patient arranged for [facility] hospice. Family requested patient to receive dialysis treatment today then discharge home with hospice on 04/15/2021 04/15/2021. Case management reports that patient will discharge home with hospice. Dedicated discharge time 32 minutes. Disposition: 50 HOSPICE/HOME Final Discharge Diagnosis (Prints w/discharge instructions): ESRD, uremia, metabolic acidosis, vascular dementia Core Measure Documentation - Palliative Care Palliative Care/ Comfort Measures: Hospice Care - Core Measures Any of the following diagnoses?: none Exam - Constitutional Vitals: Temp Pulse Resp BP Pulse Ox 98.5 F 63 18 98/53 90 04/15/21 04:29 04/15/21 04:29 04/15/21 04:29 04/15/21 04:29 04/15/21 04:29 General appearance: Present: no acute distress, well-nourished - EENT Eyes: Present: PERRL ENT: hearing intact, clear oral mucosa - Neck Neck: Present: supple, normal ROM - Respiratory Respiratory effort: normal Respiratory: bilateral: CTA - Cardiovascular Heart Sounds: Present: S1 & S2. Absent: rub, click - Extremities Extremities: pulses symmetrical, No edema Peripheral Pulses: within normal limits - Abdominal General gastrointestinal: Present: soft, non-tender, non-distended, normal bowel sounds Male genitourinary: Present: normal - Integumentary Integumentary: Present: clear, warm, dry - Musculoskeletal Musculoskeletal: gait normal, strength equal bilaterally - Psychiatric Psychiatric: appropriate mood/affect, intact judgment & insight - Neurologic Neurologic: moves all extremities, other (Encephalopathic) Plan Activity: advance as tolerated Weight Bearing Status: Weight Bear as Tolerated Diet: renal Special Instructions: home hospice Follow up with: PRIMARY CAREMD [Primary Care Provider] - 3-5 Days
[2021-04-15 09:02] LABS: Calcium 10.2 mg/dL (8.4-10.2)
[2021-04-15 13:03] VITALS: BP 125/44
--- NOTE | 2021-04-16 08:35 | Progress Note ---
Assessment and Plan Assessment and plan: 80-year-old male with history of ESRD, CVA and vascular dementia presents through the emergency department after missed hemodialysis x2 weeks. Patient reportedly no longer wants to receive hemodialysis and wants hospice care. ESRD Uremia Metabolic acidosis History of CVA Vascular dementia 04/13/2021. We will discuss with the family plans/wishes for hospice care. Patient reportedly does not want to receive further hemodialysis. I will discuss with case management. 04/14/2021. Patient arranged for [facility] hospice. Family requested patient to receive dialysis treatment today then discharge home with hospice on 04/15/2021 04/15/2021. Patient arranged for [facility] hospice. Family requested patient to receive dialysis treatment yesterday then discharge home with hospice today. History Interval history: No new issues overnight Hospitalist Physical - Constitutional Vitals: Temp Pulse Resp BP Pulse Ox 98.4 F 92 H 20 125/44 93 04/15/21 11:33 04/15/21 11:33 04/15/21 11:33 04/15/21 11:33 04/15/21 11:33 General appearance: Present: no acute distress, well-nourished - EENT Eyes: Present: PERRL, EOM intact ENT: hearing intact, clear oral mucosa, dentition normal - Neck Neck: Present: supple, normal ROM - Respiratory Respiratory effort: normal Respiratory: bilateral: CTA - Cardiovascular Rhythm: regular Heart Sounds: Present: S1 & S2. Absent: gallop, rub - Extremities Extremities: no ischemia, No edema, Full ROM - Abdominal General gastrointestinal: soft, non-tender, non-distended, normal bowel sounds - Integumentary Integumentary: Present: clear, warm, dry - Neurologic Neurologic: CNII-XII intact, moves all extremities Results - Labs CBC & Chem 7: 04/12/21 20:31 04/15/21 08:27 Labs: Laboratory Last Values WBC 9.7 K/mm3 (4.5-11.0) 04/12/21 20:31 RBC 4.36 M/mm3 (3.65-5.03) 04/12/21 20:31 Hgb 12.3 gm/dl (11.8-15.2) 04/12/21 20:31 Hct 39.4 % (35.5-45.6) 04/12/21: MCV 91 fl (84-94) 04/12/21: MCH 28 pg (28-32) 04/12/21: MCHC 31 % (32-34) L 04/12/21: RDW 13.7 % (13.2-15.2) 04/12/21 20: Plt Count 211 K/mm3 (140-440) 04/12/21: Lymph % (Auto) 7.1 % (13.4-35.0) L 04/12/21: [place] % (Auto) 5.2 % (0.0-7.3) 04/12/21 Eos % (Auto) 0.2 % (0.0-4.3) 04/12/21 Baso % (Auto) 0.4 % (0.0-1.8) 04/12/21: Lymph # (Auto) 0.7 K/mm3 (1.2-5.4) L 04/12/21 [place] # (Auto) 0.5 K/mm3 (0.0-0.8) 04/12/21: Eos # (Auto) 0.0 K/mm3 (0.0-0.4) 04/12/21: Baso # (Auto) 0.0 K/mm3 (0.0-0.1) 04/12/21: Seg Neutrophils % 87.1 % (40.0-70.0) H 04/12/21: Seg Neutrophils # 8.5 K/mm3 (1.8-7.7) H 04/12/21 20: Sodium 142 mmol/L (137-145) 04/15/21 08:27 Potassium 3.9 mmol/L (3.6-5.0) 04/15/21 08:27 Chloride 97.3 mmol/L (98-107) L 04/15/21 08:27 Carbon Dioxide 29 mmol/L (22-30) 04/15/21 08:27 Anion Gap 20 mmol/L 04/15/21 08:27 BUN 37 mg/dL (9-20) H 04/15/21 08:27 Creatinine 10.7 mg/dL (0.8-1.3) H 04/15/21 08:27 Estimated GFR 6 ml/min 04/15/21 08:27 BUN/Creatinine Ratio 3 % 04/15/21 08:27 Glucose 110 mg/dL (75-100) H 04/15/21 08:27 POC Glucose 103 mg/dL (70-105) 04/15/21 08:55 Calcium 10.2 mg/dL (8.4-10.2) 04/15/21 08:27 Total Bilirubin 0.40 mg/dL (0.1-1.2) 04/12/21 20:31 AST < 5 units/L (5-40) L 04/12/21 20:31 ALT 6 units/L (7-56) L 04/12/21 20:31 Alkaline Phosphatase 247 units/L (35-129) H 04/12/21 20:31 Ammonia 16.0 umol/L (25-60) L 04/12/21 20:31 Total Protein 6.5 g/dL (6.3-8.2) 04/12/21 20:31 Albumin 3.6 g/dL (3.9-5) L 04/12/21 20:31 Albumin/Globulin Ratio 1.2 % 04/12/21 20:31 Hepatitis A IgM Ab Non-reactive (NonReactive) 04/13/21 01:18 Hep Bs Antigen Non-reactive (Negative) 04/13/21 01:18 Hep B Core IgM Ab Non-reactive (NonReactive) 04/13/21 01:18 Hepatitis C Antibody Non-reactive (NonReactive) 04/13/21 01:18 Morrison/IV: Voiding Method Incontinent Active Medications - Current Medications Current Medications: Generic Name Dose Route Start Last Admin Trade Name Freq PRN Reason Stop Dose Admin Acetaminophen 650 mg 04/12/21 23:18 Acetaminophen 325 Mg Tab PO Q4H PRN Pain MILD(1-3)/Fever >100.5/MUÑIZ Albumin Human 25 gm 04/13/21 00:44 Albumin Human 25% (25 Gm/100 Ml) Inj IV LESLIE PRN Hypotension Dextrose 0 ml 04/14/21 14:06 Dextrose 10% *Hypoglycemia IV PRN PRN Hypoglycemia Epoetin Abhijeet-epbx 10,000 unit 04/13/21 00:44 04/14/21 11:28 Epoetin Abhijeet-Epbx 10,000 Unit/1 Ml Vial IV 10,000 unit LESLIE PRN Administration hemodialysis Dextrose/Sodium Chloride 1,000 mls @ 42 mls/hr 04/12/21 23:00 04/13/21 22:08 D5ns IV 42 mls/hr DIRECT GO Administration Sodium Chloride 100 mls @ 999 mls/hr 04/14/21 05:19 Nacl 0.9% IV LESLIE PRN Hypotension Insulin Human Regular 0 units 04/13/21 07:30 04/15/21 08:00 Insulin Regular, Human 100 Units/1 Ml SUB-Q Not Given ACHS [facility] Protocol Morphine Sulfate 2 mg 04/12/21 23:18 Morphine 2 Mg/1 Ml Inj IV Q4H PRN Pain, Moderate (4-6) Morphine Sulfate 4 mg 04/12/21 23:18 Morphine 4 Mg/1 Ml Inj IV Q4H PRN Pain , Severe (7-10) Ondansetron HCl 4 mg 04/12/21 23:18 04/14/21 01:57 Ondansetron 4 Mg/2 Ml Inj IV 4 mg Q8H PRN Administration Nausea And Vomiting Sodium Chloride 10 ml 04/13/21 10:00 04/15/21 11:18 Sodium Chloride 0.9% 10 Ml Flush Syringe IV 10 ml BID GO Administration Sodium Chloride 10 ml 04/12/21 23:18 Sodium Chloride 0.9% 10 Ml Flush Syringe IV PRN PRN LINE FLUSH
--- NOTE | 2021-04-16 08:39 | Progress Note ---
Assessment and Plan Assessment and plan: 80-year-old male with history of ESRD, CVA and vascular dementia presents through the emergency department after missed hemodialysis x2 weeks. Patient reportedly no longer wants to receive hemodialysis and wants hospice care. ESRD Uremia Metabolic acidosis History of CVA Vascular dementia 04/13/2021. We will discuss with the family plans/wishes for hospice care. Patient reportedly does not want to receive further hemodialysis. I will discuss with case management. 04/14/2021. Patient arranged for [facility] hospice. Family requested patient to receive dialysis treatment today then discharge home with hospice on 04/15/2021 04/15/2021. Patient arranged for [facility] hospice. Family requested patient to receive dialysis treatment yesterday then discharge home with hospice today. 04/16/2021. Patient was previously planned for hospice but family has now change d her mind and would like to resume hemodialysis. Continue hemodialysis TTS schedule per nephrology. History Interval history: No new issues overnight Hospitalist Physical - Constitutional Vitals: Temp Pulse Resp BP Pulse Ox 98.4 F 92 H 20 125/44 93 04/15/21 11:33 04/15/21 11:33 04/15/21 11:33 04/15/21 11:33 04/15/21 11:33 General appearance: Present: no acute distress, well-nourished - EENT Eyes: Present: PERRL, EOM intact ENT: hearing intact, clear oral mucosa, dentition normal - Neck Neck: Present: supple, normal ROM - Respiratory Respiratory effort: normal Respiratory: bilateral: CTA - Cardiovascular Rhythm: regular Heart Sounds: Present: S1 & S2. Absent: gallop, rub - Extremities Extremities: no ischemia, No edema, Full ROM - Abdominal General gastrointestinal: soft, non-tender, non-distended, normal bowel sounds - Integumentary Integumentary: Present: clear, warm, dry - Neurologic Neurologic: CNII-XII intact, moves all extremities Results - Labs CBC & Chem 7: 04/12/21 20:31 04/15/21 08:27 Labs: Laboratory Last Values WBC 9.7 K/mm3 (4.5-11.0) 04/12/21 20:31 RBC 4.36 M/mm3 (3.65-5.03) 04/12/21 20:31 Hgb 12.3 gm/dl (11.8-15.2) 04/12/21 20: Hct 39.4 % (35.5-45.6) 04/12/21: MCV 91 fl (84-94) 04/12/21 20: MCH 28 pg (28-32) 04/12/21: MCHC 31 % (32-34) L 04/12/21: RDW 13.7 % (13.2-15.2) 04/12/21: Plt Count 211 K/mm3 (140-440) 04/12/21: Lymph % (Auto) 7.1 % (13.4-35.0) L 04/12/21: [place] % (Auto) 5.2 % (0.0-7.3) 04/12/21 Eos % (Auto) 0.2 % (0.0-4.3) 04/12/21 Baso % (Auto) 0.4 % (0.0-1.8) 04/12/21 Lymph # (Auto) 0.7 K/mm3 (1.2-5.4) L 04/12/21: [place] # (Auto) 0.5 K/mm3 (0.0-0.8) 04/12/21 Eos # (Auto) 0.0 K/mm3 (0.0-0.4) 04/12/21: Baso # (Auto) 0.0 K/mm3 (0.0-0.1) 04/12/21 Seg Neutrophils % 87.1 % (40.0-70.0) H 04/12/21: Seg Neutrophils # 8.5 K/mm3 (1.8-7.7) H 04/12/21: Sodium 142 mmol/L (137-145) 04/15/21 08:27 Potassium 3.9 mmol/L (3.6-5.0) 04/15/21 08:27 Chloride 97.3 mmol/L (98-107) L 04/15/21 08:27 Carbon Dioxide 29 mmol/L (22-30) 04/15/21 08:27 Anion Gap 20 mmol/L 04/15/21 08:27 BUN 37 mg/dL (9-20) H 04/15/21 08:27 Creatinine 10.7 mg/dL (0.8-1.3) H 04/15/21 08:27 Estimated GFR 6 ml/min 04/15/21 08:27 BUN/Creatinine Ratio 3 % 04/15/21 08:27 Glucose 110 mg/dL (75-100) H 04/15/21 08:27 POC Glucose 103 mg/dL (70-105) 04/15/21 08:55 Calcium 10.2 mg/dL (8.4-10.2) 04/15/21 08:27 Total Bilirubin 0.40 mg/dL (0.1-1.2) 04/12/21 20:31 AST < 5 units/L (5-40) L 04/12/21 20:31 ALT 6 units/L (7-56) L 04/12/21 20:31 Alkaline Phosphatase 247 units/L (35-129) H 04/12/21 20:31 Ammonia 16.0 umol/L (25-60) L 04/12/21 20:31 Total Protein 6.5 g/dL (6.3-8.2) 04/12/21 20:31 Albumin 3.6 g/dL (3.9-5) L 04/12/21 20:31 Albumin/Globulin Ratio 1.2 % 04/12/21 20:31 Hepatitis A IgM Ab Non-reactive (NonReactive) 04/13/21 01:18 Hep Bs Antigen Non-reactive (Negative) 04/13/21 01:18 Hep B Core IgM Ab Non-reactive (NonReactive) 04/13/21 01:18 Hepatitis C Antibody Non-reactive (NonReactive) 04/13/21 01:18 Morrison/IV: Voiding Method Incontinent Active Medications - Current Medications Current Medications: Generic Name Dose Route Start Last Admin Trade Name Freq PRN Reason Stop Dose Admin Acetaminophen 650 mg 04/12/21 23:18 Acetaminophen 325 Mg Tab PO Q4H PRN Pain MILD(1-3)/Fever >100.5/MUÑIZ Albumin Human 25 gm 04/13/21 00:44 Albumin Human 25% (25 Gm/100 Ml) Inj IV LESLIE PRN Hypotension Dextrose 0 ml 04/14/21 14:06 Dextrose 10% *Hypoglycemia IV PRN PRN Hypoglycemia Epoetin Abhijeet-epbx 10,000 unit 04/13/21 00:44 04/14/21 11:28 Epoetin Abhijeet-Epbx 10,000 Unit/1 Ml Vial IV 10,000 unit LESLIE PRN Administration hemodialysis Dextrose/Sodium Chloride 1,000 mls @ 42 mls/hr 04/12/21 23:00 04/13/21 22:08 D5ns IV 42 mls/hr DIRECT GO Administration Sodium Chloride 100 mls @ 999 mls/hr 04/14/21 05:19 Nacl 0.9% IV LESLIE PRN Hypotension Insulin Human Regular 0 units 04/13/21 07:30 04/15/21 08:00 Insulin Regular, Human 100 Units/1 Ml SUB-Q Not Given ACHS [facility] Protocol Morphine Sulfate 2 mg 04/12/21 23:18 Morphine 2 Mg/1 Ml Inj IV Q4H PRN Pain, Moderate (4-6) Morphine Sulfate 4 mg 04/12/21 23:18 Morphine 4 Mg/1 Ml Inj IV Q4H PRN Pain , Severe (7-10) Ondansetron HCl 4 mg 04/12/21 23:18 04/14/21 01:57 Ondansetron 4 Mg/2 Ml Inj IV 4 mg Q8H PRN Administration Nausea And Vomiting Sodium Chloride 10 ml 04/13/21 10:00 04/15/21 11:18 Sodium Chloride 0.9% 10 Ml Flush Syringe IV 10 ml BID GO Administration Sodium Chloride 10 ml 04/12/21 23:18 Sodium Chloride 0.9% 10 Ml Flush Syringe IV PRN PRN LINE FLUSH
== END 2021-04-15 14:30 | disposition hospice, home (50) ==
LOC: ED 18:55 → 3A 23:18 → 4A 04-13 06:15
PROVIDERS: ADMIT Internal Medicine Geriatric Medicine; ATTEND Hospitalist
DX: G93.40 Encephalopathy, unspecified (principal); I12.0 Hypertensive chronic kidney disease with stage 5 chronic kidney disease or end stage renal disease; N18.6 End stage renal disease; R62.7 Adult failure to thrive; E11.649 Type 2 diabetes mellitus with hypoglycemia without coma; E78.2 Mixed hyperlipidemia; F01.50 Vascular dementia, unspecified severity, without behavioral disturbance, psychotic disturbance, mood disturbance, and anxiety; F17.210 Nicotine dependence, cigarettes, uncomplicated; Z91.15 Patient's noncompliance with renal dialysis; Z99.2 Dependence on renal dialysis; Z86.73 Personal history of transient ischemic attack (TIA), and cerebral infarction without residual deficits; Z79.82 Long term (current) use of aspirin; Z79.4 Long term (current) use of insulin; Z79.899 Other long term (current) drug therapy; Z98.890 Other specified postprocedural states
CPT/HCPCS: 36415; 71045; 80048; 80053; 80074; 82140; 82962; 85025; 93005; 93010; 94644; 96361; 96374; 96375; 99291; G0257; G0378; J0610; J0885; J2405; J2997; J3490; J7042; P9047; Q9967; J1815